=== PATIENT | female | born 1995 | race African-American/Black ===

== ENCOUNTER 2024-07-22 10:01 | Emergency (ER) | payer SELFPAY ==
[2024-07-22 10:06] VITALS: BP 145/102; PULSE 88; RESP 17; TEMP 36.6; O2SAT 98
--- NOTE | 2024-07-22 10:32 | ED_ITS ---
HPI - General Adult General Chief complaint: Unspecified Stated complaint: withdrawal from sertraline, wants serum hcg Time Seen by Provider: 07/22/24 10:26 Source: patient Mode of arrival: ambulatory Limitations: no limitations History of Present Illness HPI narrative: 28 YEARS OLD FEMALE DROVE HERSELF TO THE EMERGENCY ROOM COMPLAINING OF POSSIBLE SERTRALINE WITHDRAWAL EFFECT INCLUDING DIZZINESS, LIGHTHEADEDNESS, ANXIETY IN THE LAST FEW DAYS. PATIENT USED TO BE ON SERTRALINE FOR 4 YEARS, PATIENT WAS ADVISED BY HIS PSYCHIATRIST TO TAPER THE DOSE OF SERTRALINE IN THE LAST FEW WEEKS, LAST SERTRALINE INTAKE WAS HALF A TABLET 1 WEEK AGO. PATIENT UNABLE TO HAVE ANOTHER APPOINTMENT WITH HER PSYCHIATRIST. LAST MENSTRUAL PERIOD MAY 2024, PATIENT IS TELLING ME THAT SHE TESTED POSITIVE FOR AT HOME AND STARTED HER MENSTRUAL CYCLE YESTERDAY. SHE DENIES ANY FEVER OR CHILLS Related Data Allergies Allergy/AdvReac Type Severity Reaction Status Date / Time hydromorphone Allergy hives Verified 07/22/24 10:03 Review of Systems 2 Review of Systems: All systems reviewed & are unremarkable except as noted in HPI and below Exam 2 Narrative: GENERAL APPEARANCE: WELL-DEVELOPED, WELL-NOURISHED SKIN: NORMAL COLOR HEAD: NORMOCEPHALIC, NONTRAUMATIC EYES: CLEAR CONJUNCTIVA ENT: OROPHARYNX NORMAL, EARS NORMAL, NOSE NORMAL NECK: SUPPLE, NONTENDER CHEST AND RESPIRATORY: AIRWAY PATENT, NO RESPIRATORY DISTRESS, NO ACCESSORY MUSCLE USE HEART: REGULAR RATE/RHYTHM ABDOMEN: SOFT, NONTENDER, NO ORGANOMEGALY, QUIET BOWEL SOUNDS VASCULAR: NORMAL PERIPHERAL PULSES, NORMAL CAPILLARY REFILL. MUSCULOSKELETAL: NORMAL RANGE OF MOTION, NONTENDER BACK NEUROLOGIC: ALERT AND ORIENTED ?3, PROFESSOR OF HISTORICAL THEOLOGY IS NORMAL TESTED, NO GROSS MOTOR DEFICIT Course Vital Signs Vital signs: Vital Signs Temperature 36.6 C 07/22/24 10:06 Pulse Rate 88 07/22/24 10:06 Respiratory Rate 17 07/22/24 10:06 Blood Pressure 145/102 H 07/22/24 10:06 Pulse Oximetry 98 07/22/24 10:06 Oxygen Delivery Room Air 07/22/24 10:06 Temperature 36.6 C 07/22/24 10:06 Pulse Rate 88 07/22/24 10:06 Respiratory Rate 17 07/22/24 10:06 Blood Pressure 145/102 H 07/22/24 10:06 Pulse Oximetry 98 07/22/24 10:06 Oxygen Delivery Room Air 07/22/24 10:06 Medical Decision Making MDM Narrative Medical decision making narrative: PATIENT CAME WITH POSSIBLE SERTRALINE WITHDRAWAL SIDE EFFECTS POSSIBLE VITAL SIGNS ARE STABLE PHYSICAL EXAMINATION IS UNREMARKABLE DIFFERENTIAL DIAGNOSIS SERTRALINE WITHDRAWAL SIDE EFFECTS, ANXIETY LIKE SYMPTOMS, URINARY TRACT INFECTION, RELATED SYMPTOMS BLOOD WORKUP TODAY INCLUDES CBC, CMP, SERUM TEST SHOWED no significant abnormalities URINALYSIS SHOWED evidence of infection Diagnosis urinary tract infection Discharged on Macrobid Discharge Differential Diagnosis Differential Diagnosis: As above Vital Signs Vital Signs: Vital Signs Temperature 36.6 C 07/22/24 10:06 Pulse Rate 88 07/22/24 10:06 Respiratory Rate 17 07/22/24 10:06 Blood Pressure 145/102 H 07/22/24 10:06 Pulse Oximetry 98 07/22/24 10:06 Oxygen Delivery Room Air 07/22/24 10:06 Temperature 36.6 C 07/22/24 10:06 Pulse Rate 88 07/22/24 10:06 Respiratory Rate 17 07/22/24 10:06 Blood Pressure 145/102 H 07/22/24 10:06 Pulse Oximetry 98 07/22/24 10:06 Oxygen Delivery Room Air 07/22/24 10:06 Lab Data 07/22/24 10:58 07/22/24 10:58 Labs: Lab Results 07/22/24 07/22/24 07/22/24 Range/Units 10:25 10:49 10:58 WBC 8.0 (4.5-10.0) K/mm3 RBC 4.52 (4.2-5.4) M/mm3 Hgb 12.0 (12.0-15.0) g/dL Hct 38.3 (37.0-47.0) % MCV 84.7 (80-100) fl MCH 26.5 (26-34) pg MCHC 31.3 L (32-36) g/dl RDW 13.6 (11.5-14.5) % Plt Count 333 (150-375) k/mm3 MPV 9.4 (7.4-10.4) fl Immature Gran % (Auto) 0.4 (0-0.5) % Neut % (Auto) 57.1 (45.5-73.1) % Lymph % (Auto) 30.2 (18.3-44.2) % [place] % (Auto) 7.2 (2.6-8.5) % Eos % (Auto) 4.6 H (0-4.4) % Baso % (Auto) 0.5 (0.2-1.2) % Lymph # (Auto) 2.41 (0.9-3.2) K/mm3 [place] # (Auto) 0.6 (0.1-0.6) K/mm3 Eos # (Auto) 0.4 H (0-0.3) K/mm3 Baso # (Auto) 0.0 (0.0-0.1) K/mm3 Abs Immat Gran (auto) 0.03 (0.00-0.031) K/mm3 Absolute Neuts (auto) 4.6 (1.3-6.7) K/mm3 Absolute Nucleated RBC 0.000 (0.0-0.012) K/mm3 Nucleated RBC % 0.0 (0.0-0.2) % Sodium 138 (137-145) mmol/L Potassium 4.4 (3.4-5.0) mmol/L Chloride 103 (98-107) mmol/L Carbon Dioxide 29 (22-30) mmol/L Anion Gap 6 (4-12) mmol/L BUN 9 (7-17) mg/dL Creatinine 0.85 (0.7-1.0) mg/dL Estim Creat Clear Calc 114 ml/min Estimated GFR > 60 (59 - ) Glucose 96 (65-110) mg/dL Calcium 9.4 (8.4-10.2) mg/dL Total Bilirubin 0.2 (0.2-1.3) mg/dL AST 20 (14-36) U/L ALT 27 (6-35) U/L Alkaline Phosphatase 68 (38-126) U/L Total Protein 8.0 (6.3-8.2) g/dL Albumin 4.2 (3.5-5.1) g/dL Beta HCG, Quant 3.60 mIU/ML Urine Color Red H (Yellow) Urine Appearance Turbid H (Clear) Urine pH 7.5 (5.0-9.0) Ur Specific [place] 1.019 (1.001-1.035) Urine Protein 1+ H (Negative) mg/dL Urine Glucose (UA) Negative (Negative) mg/dL Urine Ketones Negative (Negative) mg/dL Ur Blood (Man) 3+ H (Negative) Urine Nitrate Negative (Negative) Urine Bilirubin Negative (Negative) Urine Urobilinogen 0.2 (<2.0) mg/dL Leukocyte Esterase Rfl 2+ H (Negative) HORTENCIA/UL Urine RBC >100 H (0-2) /hpf Urine WBC 10-15 H (0-3) /hpf Ur Squamous Epith Cells Occasional (Few) /hpf Urine Bacteria 2+ H (None) /hpf POC Urine HCG, Qual Negative (Negative) Critical Care Time Critical Care Time Critical Care Time: No Discharge Plan Discharge Clinical Impression: Urinary tract infection Patient Disposition: Home, Self-Care Condition: Stable Instructions: Antibiotic Form, Urinary Tract Infection in Women (DC) Additional Instructions: Return if symptoms are worsening , call your family physician for appointment, take Tylenol as as needed for aches and pain, continue home medications. Patient Language: Uzbek Prescriptions: New nitrofurantoin monohyd/m-cryst [Macrobid] 100 mg capsule 100 mg PO Q12H 5 Days Qty: 10 0RF Rx Instructions: must administer with a meal/food Follow-up/Referrals: Mario Galdamez MD [Physician] - 07/27/24 UNKNOWN,DOCTOR [Primary Care Provider] -
[2024-07-22 10:36] LABS: BEDSIDEPREGUCG Negative (Negative)
[2024-07-22 11:12] LABS: Basophils Percent Auto 0.5 % (0.2-1.2); Eosinophils Absolute Auto 0.4 K/mm3 (0-0.3); Eosinophils Percent Auto 4.6 % (0-4.4); Hematocrit 38.3 % (37.0-47.0); Immature Granulocyte Absolute 0.03 K/mm3 (0.00-0.031); Immature Granulocyte Percent A 0.4 % (0-0.5); Lymphocytes Absolute Auto 2.41 K/mm3 (0.9-3.2); Lymphocytes Percent Auto 30.2 % (18.3-44.2); Mean Corpuscular HGB Conc 31.3 g/dl (32-36); Mean Corpuscular Hemoglobin 26.5 pg (26-34); Mean Corpuscular Volume 84.7 fl (80-100); Mean Platelet Volume 9.4 fl (7.4-10.4); Monocytes Absolute Auto 0.6 K/mm3 (0.1-0.6); Monocytes Percent Auto 7.2 % (2.6-8.5); Neutrophils Absolute Auto 4.6 K/mm3 (1.3-6.7); Neutrophils Percent Auto 57.1 % (45.5-73.1); Platelet Count Result 333 k/mm3 (150-375); Red Blood Count 4.52 M/mm3 (4.2-5.4); Red Cell Distribution Width 13.6 % (11.5-14.5)
[2024-07-22 11:13] LABS: Add Urine Microscopic? YES; Appearance Urine Turbid (Clear); Bilirubin Urine Negative (Negative); Blood Urine 3+ (Negative); Glucose Urine UA Negative (Negative); Ketones Urine Negative (Negative); Leukocyte Esterase Ur 2+ LEU/UL (Negative); Nitrate Urine Negative (Negative); Protein Urine 1+ mg/dL (Negative); Specific Grav Ur 1.019 (1.001-1.035); Urobilinogen Urine 0.2 mg/dL (<2.0); pH Urine 7.5 (5.0-9.0)
[2024-07-22 11:18] LABS: Color Urine Red (Yellow)
[2024-07-22 11:24] LABS: Alanine Aminotransferase 27 U/L (6-35); Albumin Level 4.2 g/dL (3.5-5.1); Alkaline Phosphatase 68 U/L (38-126); Anion Gap 6 mmol/L (4-12); Aspartate Amino Transferase 20 U/L (14-36); Bilirubin,Total 0.2 mg/dL (0.2-1.3); Blood Urea Nitrogen 9 mg/dL (7-17); Calcium 9.4 mg/dL (8.4-10.2); Carbon Dioxide 29 mmol/L (22-30); Chloride 103 mmol/L (98-107); Estimated CRCL calculation 114 ml/min; Estimated Glomerular Filt Rate > 60; Glucose 96 mg/dL (65-110); Potassium 4.4 mmol/L (3.4-5.0); Sodium 138 mmol/L (137-145)
--- OUTSIDE RECORDS SUMMARY | 2024-07-22 11:33 | XMS_ITS | Clinical Summary ---
Author Organization [facility] Address [address] [place] [id number] Care Team Providers Care Rug Touch Up Painter Name Role Phone Wily Cedeno MD Primary Care Provider [phone] Allergies Active Allergy Reactions Criticality Noted Date Comments Hydromorphone Itching Low 06/17/2017 Medications vit D3-vit B-impfvjsyk-oel s [id number] bymg-ncl-xg-mg tablet Take by mouth Active albuterol HFA (PROVENTIL HFA,VENTOLIN HFA,PROAIR HFA) 90 mcg/actuation inhaler Inhale 2 puffs every 4 (four) hours as needed for wheezing 1 Inhaler 06/04/2019 Active ibuprofen (ADVIL,MOTRIN) 800 mg tablet Take 1 tablet by mouth every 6 (six) hours as needed 05/26/2019 Active acyclovir (ZOVIRAX) 400 mg tablet Take 1 tablet (400 mg total) by mouth 3 (three) times a day 15 tablet 10/29/2019 Active cyclobenzaprine (FLEXERIL) 10 mg tablet Take 1 tablet (10 mg total) by mouth 3 (three) times a day as needed for muscle spasms 12 tablet 08/07/2020 Active Active Problems Problem Noted Date Diagnosed Date Genital herpes 10/08/2019 Depression 10/08/2019 Tarsal tunnel syndrome of left side 10/13/2017 Pain in both feet 10/13/2017 Atrial fibrillation 08/19/2015 Asthma Overview (08/18/2019): Details lacking Resolved Problems Problem Noted Date Diagnosed Date Resolved Date Acute vaginitis 09/23/2017 10/08/2019 Acute cervicitis 09/23/2017 10/08/2019 URI, acute 09/23/2017 08/18/2019 Overview (08/18/2019): Details lacking. Febrile illness, acute 09/23/201708/17 Overview (08/18/2019): Details lacking. Cholecystitis 12/07/2011 10/08/2019 Overview (08/18/2019): Overview: H/o chronic epigastric abdominal pain, recently increasing in frequency over the past year. Positive sonographic Han's sign at OSH. She remains afebrile, though has elevated AST, ALT, GGT. Ultrasound at OSH indicated cholelithiasis with probable choledocholithiasis and mild ectasia of common bile duct. Concern for acute cholecystitis with leukocytosis and left shift. Clinically improving (however receiving opiate pain control), while labs continue to trend down, less discomfort on exam this am. - continue to appreciate surgery consult - continue NPO status with OHVF - continue IV antibiotics- Unasyn (ampicillin-sulbactam) for 1g Q6 hours - day 2 - Vital signs Q4 hours - Strict intake and output Acute pancreatitis 12/07/2011 0 Overview (08/18/2019): Overview: Maria L had epigastric abdominal pain radiating to the back one day prior to admission, with emesis and poor PO intake. On admission, noted dehydration with epigastric pain on exam. No guarding or rebound tenderness. Amylase and lipase elevated at OSH, to 2350 and 4376, trended down to 1068 and 1137 on admission. GGT elevated at 298. US completed at OSH, indicated cholelithiasis + dilated common bile duct with mild ectasia of common bile duct. In consideration of Maria L's US findings + elevated transaminases on admission, her clinical picture correlated with gallstone pancreatitis, s/p likely passing of a gallstone. Less likely an isolated episode of acute cholecystitis per imaging, with down trending WBCs, L shift, and LFTs. She continues to clinically improve, liver enzymes, amylase, lipase continue to trend down, responded well to antibiotics and bowel rest + supportive care, no BMs at this time. Pain continues to be well managed, no morphine needed within the last 24hrs. - pending scheduled lap fermín + cholangiogram today, 12/09 - continue to trend repeat amylase, lipase, CMP qAM - pain control: IV morphine 4mg q4 PRN, d/c'ed Dilaudid 1mg q4 prn - continue bowel rest + mIVF while NPO - continue Colace for constipation 2/2 opioids - continue Nexium IV - consider nutrition consult s/p surgery Immunizations Immunization Administration Dates Next Due DTaP 01/22/2002, 9,06/08/1997,04/20,02/18/1997 HPV, Quadrivalent 12/25/2010,08/28/2009,11/29/19 07 Hep A, Ped Unspecified 11/28/2006 Hep A, Pediatric 08/28/2009 Hep B, Adolescent or Pediatric 10/10/1997,1996,1996 HiB 05/19/1998, 8,04/20/1997,02/18 IPV 01/22/2002, 9,04/20/1997,02/18 Influenza, Quadrivalent, Spl it, Preservative Free, Intramuscular 10/08/2023 MMR 01/22/2002,05/19/1998 Meningococcal Conjugate (Menveo) 01/05/2014 Meningococcal MCV4, Unspecified 08/28/2009 OPV 05/19/1998,04/20/1997,02/18/1997 Tdap 10/08/2023,11/28/2006 Varicella 11/28/2006,12/08/1997 Surgical History Surgery Date Site/Laterality Comments LAPAROSCOPIC CHOLECYSTECTOMY 05/12/2011 - 05/11/2012 Medical History Medical History Date Comments Asthma Details lacking Febrile illness, acute 09/23/2017 Details l acking. URI, acute 09/23/2017 Details lacking. Family History Medical History Relation Name Comments Arrhythmia Father A-fib? Hypertension Father Diabetes Maternal Grandmother Hypertension Maternal Grandmother Breast cancer Maternal Great-Grandmother Depression Mother Hypertension Mother Hypertension Paternal Grandmother Relation Name Status Comments Father Maternal Grandmother Maternal Great-Grandmother Mother Paternal Grandmother Social History Tobacco Use Types Packs/Day Years Used Date Smoking Tobacco: Never Smokeless Tobacco: Never Alcohol Use Standard Drinks/Week Comments Yes 1 (1 standard drink = 0.6 oz pur e alcohol) occasionally Personal Safety Answer Date Recorded Getting School Help Needed Not on file 07/06 Comments No Sex and Gender Information Value Date Recorded Sex Assigned at Not on file Legal Sex Female 3:12 PM [employer]UM REGIST[employer] Gender Identity Not on file Sexual Orientation Not on file Occupation Industry Job Start Date Job End Date N/A Not on file Not on file Not on file Obstetrics History Para Term AB IAB SAB Ectopic Multiple Livin g Live Births 0 0 0 0 0 0 0 0 0 0 0 Last Filed Vital Signs Vital Sign Reading Time Taken Comments Blood Pressure 130/91 04/21/2021 10:44 PM [employer]USEUM REGISTRAR Pulse 100 04/21/2021 10:43 PM [employer]USEUM REGISTRAR Temperature 36.7 C (98.1 F) 04/21/2021 10:43 PM MUSEUM REGISTRAR Respiratory Rate 18 04/21/2021 10:43 PM MUSEUM REGISTRAR Oxygen Saturation 100% 04/21/2021 10:43 PM MUSEUM REGISTRAR Inhaled Oxygen Concentration - - Weight 87.5 kg (193 lb) 08/07/2020 9:08 AM CDT Height 172.7 cm (5' 8 ) 08/07/2020 9:08 AM CDT Body Mass Index 29.35 08/07/2020 9:08 AM CDT Plan of Treatment Health Maintenance Due Date Last Done Comments Cervical Cancer Screening 1996 Depression Screening 1996 Hepatitis C Screening 1996 Regular Well Visit/Exam 18-64 2014 Pneumococcal vaccine <65 (1 of 2 - PCV) 11/28/2015 Influenza Vaccine (#1) 2024 10/08/2023 DTaP/Tdap/Td Vaccine (8 - Td or Tdap) 10/07/2033 10/08/2023, 11/28/2006, 01/22/2002, Additional history exists Hepatitis B Screening Completed 10/10/1997 , 1996, 1996 Varicella Vaccines Completed 11/28/2006, 12/08/1997 HPV Vaccines Completed 12/25/2010, 08/10, 11/28/2006 Insurance [facility] OPEN ACCESS Care Teams Rug Touch Up Painter Relationship Specialty Start Date End Date Wily Cedeno MD [address] [place] [address] DR BURLESON B [address] [address] PCP - General Family Medicine 06/18/22
--- OUTSIDE RECORDS SUMMARY | 2024-07-22 11:33 | XMS_ITS | Referral Summary ---
Author Organization [facility] Address [address] [place] [id number] Care Team Providers Care Cocktail Server Name Role Phone Wily Cedeno MD Primary Care Provider [phone] Allergies Active Allergy Reactions Criticality Noted Date Comments Hydromorphone Itching Low 06/17/2017 Medications vit D3-vit E-cnvdpzizx-upl s [id number] yfpb-aly-pq-mg tablet Take by mouth Active albuterol HFA [...] surgery consult - continue NPO status with OKVF - continue IV antibiotics- Unasyn (ampicillin-sulbactam) for [...] 08/28/2009 OPV 05/19/1998,04/20/1997,02/18/1997 Tdap 10/08/2023,11/28/2006 Varicella 11/28/2006,12/08/1997 Social History Tobacco Use Types Packs/Day Years [...] on file Legal Sex Female 3:12 PM [employer] Gender Identity Not on file Sexual Orientation Not on file Occupation Industry Job Start Date Job End Date N/A Not on file Not on file Not on file Last Filed Vital Signs Vital Sign Reading Time Taken Comments Blood Pressure 130/91 04/21/2021 10:44 PM [employer] Pulse 100 04/21/2021 10:43 PM [employer] Temperature 36.7 C (98.1 F) 04/21/2021 10:43 PM [employer] Respiratory Rate 18 04/21/2021 10:43 PM [employer] Oxygen Saturation 100% 04/21/2021 10:43 PM [employer] Inhaled Oxygen Concentration - - Weight 87.5 kg (193 lb) 08/07/2020 9:08 AM CDT Height 172.7 cm (5' 8 ) 08/07/2020 9:08 AM CDT Body Mass Index 29.35 08/07/2020 9:08 AM CDT Plan of Treatment Not on file Insurance [facility] [employer] OPEN ACCESS Care Teams Cocktail Server Relationship Specialty Start Date End Date Wily Cedeno MD [address] [place] [address] DR BURLESON B [facility] [address] [place] [address] PCP - General Family Medicine 06/18/22
--- OUTSIDE RECORDS SUMMARY | 2024-07-22 11:33 | XMS_ITS | Patient Health Summary ---
Author Organization [facility] Address [address] [place] [address] Care Team Providers Care Pediatric Allergist Name Role Phone Wily Cedeno MD Primary Care Provider [phone] Note from [facility],non-owned Affiliates and Associated Physician Practices is amultiple site organization consisting of ambulatory clinics and hospital sitesin [place], [place], [place] and [place]. This disclosure is being madepursuant to the Care Everywhere program and may not contain all information available regarding this patient. Last updated 18.[facility] Allergies * Hydromorphone(Itching) Medications * Be aware that medications may not be up to date on this document. Alwaysverify current medications with the patient. * FIBER PO Take 1 Tab by mouth 3 times daily. * lansoprazole (PREVACID) 30 MG capsule(Started 03/03/2014) Take 1 Cap by mouth 2 times daily,before breakfast and supper. 5 refills left * polyethylene glycol 3350 (MIRALAX) powder(Started 03/03/2014) Take 8.5 g by mouth once daily. 5 refills left Active Problems Problem Noted Date Diagnosed Date Obese 12/09/2011 Cholecystitis 12/07/2011 Gallstone Pancreatitis 12/07/2011 Social History Tobacco Use Types Packs/Day Years Used Date Smoking Tobacco: Never Assessed Smokeless Tobacco: Never Alcohol Use Standard Drinks/Week Comments No 0 (1 standard drink = 0.6 oz pur e alcohol) Sex and Gender Information Value Date Recorded Sex Assigned at Not on file Gender Identity Not on file Sexual Orientation Not on file Last Filed Vital Signs Vital Sign Reading Time Taken Comments Blood Pressure 108/62 03/03/2014 4:11 PM CDT Pulse 55 12/11/2011 12:10 PM CDT Temperature 36.6 C (97.8 F) 12/11/2011 12:10 PM CDT Respiratory Rate 14 12/11/2011 12:1 0 PM CDT Oxygen Saturation 98% 12/11/2011 12: 10 PM CDT Inhaled Oxygen Concentration - - Weight 74.3 kg (163 lb 12.8 oz) 03/03/2014 4:11 PM CDT Height 166.5 cm (5' 5.55 ) 03/03/2014 4:11 PM CD T Body Mass Index 26.8 03/03/2014 4:11 PM CDT Procedures * LAB RESULTS ORDER(Performed 03/24/2014) * PATHOLOGY/CYTOLOGY REPORT ORDER(Performed 12/13/2011) * LAB RESULTS ORDER(Performed 12/13/2011) * IMAGING/RADIOLOGY/XRAY RESULTS ORDER(Performed 12/13/2011) * LIPASE BLOOD(Performed 12/11/2011) * AMYLASE BLOOD(Performed 12/11/2011) * LAPAROSCOPIC CHOLECYSTECTOMY WITH CHOLANGIOGRAM (IOC)(Performed 12/11/2011) Performed for Cholecystitis, unspecified * FL OR CHOLANGIOGRAM(Performed 12/10/2011) Performed for Cholecystitis * GROSS EXAM PATHOLOGY (STL)(Performed 12/10/2011) Performed for Cholecystitis * DIFFERENTIAL MANUAL(Performed 12/10/2011) * CBC W AUTO DIFFERENTIAL(Performed 12/10/2011) * LIPASE BLOOD(Performed 12/10/2011) * AMYLASE BLOOD(Performed 12/10/2011) * COMPREHENSIVE METABOLIC PANEL(Performed 12/10/2011) * HCG URINE QUALITATIVE(Performed 12/09/2011) * CBC W AUTO DIFFERENTIAL(Performed 12/09/2011) * LIPASE BLOOD(Performed 12/09/2011) * AMYLASE BLOOD(Performed 12/09/2011) * COMPREHENSIVE METABOLIC PANEL(Performed 12/09/2011) * DIFFERENTIAL MANUAL(Performed 12/08/2011) * CBC W AUTO DIFFERENTIAL(Performed 12/08/2011) * LIPASE BLOOD(Performed 12/08/2011) * AMYLASE BLOOD(Performed 12/08/2011) * COMPREHENSIVE METABOLIC PANEL(Performed 12/08/2011) * IP CONSULT TO PEDIATRIC SURGERY(Performed 12/07/2011) * LIPASE BLOOD(Performed 12/07/2011) * COMPREHENSIVE METABOLIC PANEL(Performed 12/07/2011) * AMYLASE BLOOD(Performed 12/07/2011) * DIFFERENTIAL MANUAL(Performed 12/06/2011) * LIPASE BLOOD(Performed 12/06/2011) * AMYLASE BLOOD(Performed 12/06/2011) * LIPID PROFILE(Performed 12/06/2011) * GGT(Performed 12/06/2011) * COMPREHENSIVE METABOLIC PANEL(Performed 12/06/2011) * CBC W AUTO DIFFERENTIAL(Performed 12/06/2011) * LUPUS ANTICOAGULANT PANEL W RFLX(Performed 04/09/2010) Performed for Raynaud's phenomenon * VITAMIN D 25-HYDROXY(Performed 04/09/2010) Performed for Raynaud's phenomenon * RHEUMATOID FACTOR BLOOD SCREEN(Performed 04/09/2010) Performed for Raynaud's phenomenon * TSH(Performed 04/09/2010) Performed for Raynaud's phenomenon * ERYTHROCYTE SEDIMENTATION RATE(Performed 04/09/2010) Performed for Raynaud's phenomenon * CK BLOOD(Performed 04/09/2010) Performed for Raynaud's phenomenon * C-REACTIVE PROTEIN(Performed 04/09/2010) Performed for Raynaud's phenomenon * COMPLEMENT C4(Performed 04/09/2010) Performed for Raynaud's phenomenon * COMPLEMENT C3(Performed 04/09/2010) Performed for Raynaud's phenomenon * COMPLEMENT TOTAL(Performed 04/09/2010) Performed for Raynaud's phenomenon * CBC W AUTO DIFFERENTIAL(Performed 04/09/2010) Performed for Raynaud's phenomenon * COMPREHENSIVE METABOLIC PANEL(Performed 04/09/2010) Performed for Raynaud's phenomenon * CARDIOLIPIN ANTIBODY IGG/IGM PANEL(Performed 04/09/2010) Performed for Raynaud's phenomenon * BETA-2 GLYCOPROTEIN 1 ANTIBODY IGG/IGM PANEL(Performed 04/09/2010) Performed for Raynaud's phenomenon * THYROID AB PANEL (TPO AB+THYROGLOB AB)(Performed 04/09/2010) Performed for Raynaud's phenomenon * MPO/GA 3 AUTOANTIBODIES PANEL(Performed 04/09/2010) Performed for Raynaud's phenomenon * ABILIO BLOOD SCREEN W/REFLEX TITER(Performed 04/09/2010) Performed for Raynaud's phenomenon * SS-B (SJOGREN'S) ANTIBODY(Performed 04/09/2010) Performed for Raynaud's phenomenon * SS-A (SJOGREN'S) ANTIBODY(Performed 04/09/2010) Performed for Raynaud's phenomenon * RON (SM) ANTIBODY TY(Performed 04/09/2010) Performed for Raynaud's phenomenon * SCLERODERMA 70 (SCL) ANTIBODY(Performed 04/09/2010) Performed for Raynaud's phenomenon * ACTIVATED SLUDGE OPERATOR ANTIBODY(Performed 04/09/2010) Performed for Raynaud's phenomenon * DNA ANTIBODY DOUBLE STRANDED(Performed 04/09/2010) Performed for Raynaud's phenomenon Results * LAB RESULTS ORDER (03/24/2014 2:23 PM OBSTETRICS TEACHER) Only the most recent of2 resultswithin the time period is included. Narrative 03/24/2014 2:23 PM OBSTETRICS TEACHER Ordered by an unspecified provider. Scanned Document LAB - THERAPEUTIC DR UG MONITORING ORDERABLES * PATHOLOGY/CYTOLOGY REPORT ORDER (12/13/2011 5:36 PM CDT) Narrative Transcriptions Document, Scanned - 12/13/2011 5:36 PM CDT Scanned Document LAB - PATHOLOGY/CYTO LOGY ORDERABLES * IMAGING/RADIOLOGY/XRAY RESULTS ORDER (12/13/2011 5:36 PM CDT) Anatomical Region Laterality Modality Other Narrative Transcriptions Document, Scanned - 12/13/2011 5:36 PM CDT Scanned Document IMAGING * LIPASE BLOOD (12/11/2011 11:35 AM CDT) Only the most recent of6 resultswithin the time period is included. Lipase 80 10 - 220 U/L 12/11/2011 12:31 PM CDT [facility] Blood specimen (specimen) BLOOD SPECIMEN / Unknown 12/11/2011 11:35 AM CDT 12/11/2011 11:54 AM CDT Niharika Francois MD LAB - CHEMISTRY OR DERABLES Performing Organization Address [facility]/ZIP Co de Phone Number [facility] [address] [place] [address] * (ABNORMAL) AMYLASE BLOOD (12/11/2011 11:35 AM CDT) Only the most recent of6 resultswithin the time period is included. Amylase 96(H) 5 - 65 U/L 12/11/2011 12:31 PM CDT [facility] Blood specimen (specimen) BLOOD SPECIMEN / Unknown 12/11/2011 11:35 AM CDT 12/11/2011 11:54 AM CDT Niharika Francois MD LAB - CHEMISTRY OR DERABLES Performing Organization Address [facility] Co de Phone Number [facility] [address] [place] [address] * FL OR CHOLANGIOGRAM (12/10/2011 6:28 PM CDT) Anatomical Region Laterality Modality Radio Fluoroscop y 12/11/2011 1:18 PM CDT Impressions 12/11/2011 2:50 PM CDT No filling defect is identified. D: Prashanth Chopra D.O. Narrative 12/11/2011 2:50 PM CDT Exam: Intraoperative cholangiogram. Date: 12/10/2011 at 5:57 p.m. History: Cholecystitis. Findings: No prior study is available for comparison. Five intraoperative images were obtained with limited ayjot-fj-zdfg. Two trocars are seen within the [id number]. Contrast is seen outlining the cystic duct, common bile duct, common hepatic duct, right and left hepatic ducts. No extravasation of the contrast is identified. Contrast is seen sequentially filling the duodenum. Procedure Note Reny Hoffman MD - 12/11/2011 Exam: Intraoperative cholangiogram. Date: 12/10/2011 at 5:57 p.m. History: Cholecystitis. Findings: No prior study is available for comparison. Five intraoperative images were obtained with limited pnlxr-xr-qoyd. Two trocars are seen within the [id number]-[id number]. Contrast is seen outlining the cystic duct, common bile duct, common hepatic duct, right and left hepatic ducts. No extravasation of the contrast is identified. Contrast is seen sequentially filling the duodenum. IMPRESSION No filling defect is identified. D: Prashanth Chopra D.O. Irving Banegas MD FLUOROSCOPY ORDERABL ES * GROSS EXAM PATHOLOGY (STL) (12/10/2011 6:15 PM CDT) Case Report Surgical Pathology Report Case: [id number] Authorizing Provider: Irving Banegas MD Ordering Provider: Irving Banegas MD Ordering Location: [facility] Collected: 12/10/2011 6:15 PM Pathologist: Leora Brown Received: 12/11/2011 6:50 AM Signed Out: 12/12/2011 1:16 PM (Final) Specimen: Gallbladder 12/12/2011 1:16 PM T [facility] Final Diagnosis GALLBLADDER: - CHRONIC CHOLECYSTITIS AND CHOLELITHIASIS. 12/12/2011 1:16 PM T [facility] Clinical History The patient is a 16-year-old girl with cholecystitis who underwent laparoscopic cholecystectomy. 12/12/2011 1:16 PM T [facility] Gross Description Submitted fixed in formalin in one container for gross and microscopic examination labeled with the patient's name, Maria L Damico, and gallbladder, is a gallbladder submitted in five fragments. The specimen has an aggregate measurement of 10 x 2 x 1.2 cm. The cystic duct is identified and is stapled. The serosal surface is yellow-sweeney and smooth. The gallbladder contains numerous yellow choleliths ranging in size from 0.1 cm up to 1 cm in greatest dimension. The mucosal surface has a green-brown mossy appearance. The gallbladder wall thickness is 0.3 cm. Numerous yellow choleliths are submitted outside the gallbladder within the specimen container. Dairy Cattle Farm Manager sections from the gallbladder and cystic duct are submitted in cassette A1. (CT/mal) 12/12/2011 1:16 PM T [facility] Microscopic Description 1 H&E. The gallbladder histologically shows chronic inflammation of the mucosa with occasional Rokitansky-Aschof f sinuses. (CV/mal) 12/12/2011 1:16 PM T [facility] Synoptic Report 12/12/2011 1:16 PM T [facility] Disclaimer This case has been personally reviewed and interpreted by the attending (teaching) pathologist. 12/12/2011 1:16 PM T [facility] Miscellaneous samples (specimen) ENTIRE GALLBLADDER / Unknown 12/10/2011 6:15 PM CDT 12/11/2011 6:50 AM CDT Irving Banegas MD LAB - PATHOLOGY/CYTO LOGY ORDERABLES Performing Organization Address City/State/[facility] Co de Phone Number [facility] [place] [address] * DIFFERENTIAL MANUAL (12/10/2011 6:19 AM CDT) Only the most recent of3 resultswithin the time period is included. WBC Auto 7.6 X(10)9/L 12/10/2011 8:43 AM T [facility] Neutrophil % Manual 55 24 - 66 % 12/10/2011 8:43 AM T [facility] Lymphocytes % Manual 29 22 - 61 % 12/10/2011 8:43 AM T [facility] Monocytes % Manual 9 3 - 15 % 12/10/2011 8:43 AM T [facility] Eosinophils % Manual 5 0 - 10 % 12/10/2011 8:43 AM [facility] Atypical Lymphocyte % Manual 2 % 12/10/2011 8:43 AM T [facility] Cells Counted 100 # cells 12/10/2011 8:43 AM [facility] Platelet Estimation Normal 12/10/2011 8:43 AM [facility] WBC Morph Normal 12/10/2011 8:43 AM [facility] Anisocytosis Slight 12/10/2011 8:43 AM T [facility] Blood specimen (specimen) BLOOD SPECIMEN / Unknown 12/10/2011 6:19 AM CDT 12/10/2011 6:33 AM CDT Shila Zafar MD LAB - HEMATOLOGY ORDERABLES [facility] [address] [place] [place] [address] * (ABNORMAL) CBC W AUTO DIFFERENTIAL (12/10/2011 6:19 AM CDT) Only the most recent of5 resultswithin the time period is included. WBC 7.6 4.5 - 14.5 x10^9/L 12/10/2011 8:43 AM T [facility] RBC 4.13 4.10 - 5.10 x10^12/L 12/10/2011 8:43 AM [facility] Hemoglobin 11.6(L) 12.0 - 16.0 g/dL 12/10/2011 8:43 AM [facility] Hematocrit 33.7(L) 36.0 - 47.0 % 12/10/2011 8:43 AM [facility] MCV 81.6 78.0 - 102.0 fl 12/10/2011 8:43 AM T [facility] MCH 28.1 25.0 - 35.0 pg 12/10/2011 8:43 AM [facility] MCHC 34.4 31.0 - 37.0 gm/dL 12/10/2011 8:43 AM [facility] RDW-CV 12.4 11.5 - 14.0 % 12/10/2011 8:43 AM [facility] MPV 11.2(H) 6.0 - 9.5 fl 12/10/2011 8:43 AM [facility] nRBC Auto 0 12/10/2011 8:43 AM [facility] Hematology Reflex Status Manual Diff to follow 12/10/2011 8:43 AM [facility] Platelet Count 250 100 - 400 x10^9/L 12/10/2011 8:43 AM [facility] Blood specimen (specimen) BLOOD SPECIMEN / Unknown 12/10/2011 6:19 AM CDT 12/10/2011 6:33 AM CDT Shila Zafar MD LAB - HEMATOLOGY ORDERABLES [facility] [address] [place] [address] * (ABNORMAL) COMPREHENSIVE METABOLIC PANEL (12/10/2011 6:19 AM CDT) Only the most recent of6 resultswithin the time period is included. Glucose 113(H) 70 - 105 mg/dL 12/10/2011 7:14 AM [facility] Sodium 140 136 - 145 mmol/L 12/10/2011 7:14 AM [facility] Potassium 5.1 3.5 - 5.1 mmol/L 12/10/2011 7:14 AM [facility] Chloride 107 98 - 107 mmol/L 12/10/2011 7:14 AM [facility] CO2 21 20 - 28 mmol/L 12/10/2011 7:14 AM [facility] Calcium 9.44 9.08 - 10.48 mg/dL 12/10/2011 7:14 AM [facility] Anion Gap 12 5 - 20 mmol/L 12/10/2011 7:14 AM [facility] BUN 5.4 5.3 - 18.7 mg/dL 12/10/2011 7:14 AM [facility] Creatinine 0.55(L) 0.61 - 1.07 mg/dL 12/10/2011 7:14 AM [facility] eGFR by MDRD ml/min/1. 73m2 12/10/2011 7:14 AM [facility] Comment:eGFR calculations ar e not performed for children under 18 years old. eGFR by MDRD ml/min/1. 73m2 12/10/2011 7:14 AM [facility] Comment:eGFR calculations ar e not performed for children under 18 years old. Alkaline Phosphatase 93(L) 100 - 390 U/L 12/10/2011 7:14 AM [facility] ALT 90(H) 8 - 65 U/L 12/10/2011 7:14 AM [facility] AST 21 3 - 35 U/L 12/10/2011 7:14 AM [facility] Protein Total 6.7 6.3 - 8.2 gm/dL 12/10/2011 7:14 AM CDT [facility] Albumin 3.5 3.3 - 4.9 gm/dL 12/10/2011 7:14 AM CDT [facility] Bilirubin Total 0.5 0.3 - 1.2 mg/dL 12/10/2011 7:14 AM CDT [facility] Blood specimen (specimen) BLOOD SPECIMEN / Unknown 12/10/2011 6:19 AM CDT 12/10/2011 6:33 AM CDT Shila Zafar MD LAB - CHEMISTRY O RDERABLES Performing Organization Address [facility] Co de Phone Number [facility] [address] [place] [phone] * HCG URINE QUALITATIVE (12/09/2011 2:30 PM CDT) hCG Qualitative Urine Negative Negative 12/09/2011 9:53 PM CDT [facility] Urine specimen (specimen) URINE / Unknown 12/09/2011 2:30 PM CDT 12/09/2011 8:34 PM CDT Radha Berman MICROSTRATEGY ARCHITECT-SOILS ANALYST LAB - URINAL YSIS ORDERABLES Performing Organization Address [facility] Co de Phone Number [facility] [address] [place] [address] * IP CONSULT TO PEDIATRIC SURGERY (12/07/2011 3:11 PM CDT) Narrative Irving Banegas MD - 12/07/2011 3:11 PM CDT Irving Banegas MD 12/07/2011 3:11 PM Pediatric General Surgery History and Physical Patient's Primary Care Physician: Julius Euceda Name: Maria L Damico Age: 16 y.o. Race: black Sex: female Admit Date: 12/06/2011 3:05 PM Chief Complaint/History of Present Illness Abdominal Pain. Maria L Damico is a 16 y.o. female with chronic abdominal pain presenting with two days of epigastric pain and emesis. Pain began after large meal and was diffuse and epigastric prior to spreading to her back and flanks bilaterally. As pain increased, it triggered several bouts of emesis. Pt presented to OSH were initial workup significant for markedly elevated amylase and lipase concerning for pancreatitis. Abd US at the time showed signs of cholecystitis. Pt was transferred to [facility] for further management. No past medical history on file. No past surgical history on file. No family history on file. Social History Occupational History Not on file. Social History Main Topics Smoking status: Not on file Smokeless tobacco: Never Used Alcohol Use: No Drug Use: No Sexually Active: Not on file Prescriptions prior to admission Medication Sig Dispense Refill vitamin D, ergocalciferol, (DRISDOL) 67598 UNIT capsule Take 1 Cap by mouth every 7 days. 4 Cap 2 No Known Allergies Review of Systems Constitutional: No unexplained fever, sweats. Ears, nose, mouth, and throat: No mouth dryness, sores, hearing stable , no nasal discharge. Respiratory: No cough, dyspnea, wheezing, pleuritic pain. Cardiovascular: No exertional chest pain, palpitations, edema, claudication. Gastrointestinal: Poor appetite, nausea, vomiting, abdominal pain, epigastric pain, change in bowel habits, diarrhea Genitourinary: No nocturia, dysuria, frequency, bleeding. Skin: Abdominal rash, h/o Raynaud's disease Exam Vitals: 12/07/11 0730 12/07/11 0740 12/07/11 0750 12/07/11 0805 BP: 117/74 112/75 117/85 131/83 Pulse: 81 81 77 93 Temp: 98.4 F Resp: 12 22 17 12 Weight: SpO2: 94% 93% 94% 98% General appearance: alert, cooperative, no distress Heart: regular rhythm, normal S1 and S2, without murmurs, rubs or gallops Lungs: breath sounds normal and symmetric; no rales or wheezes Abdomen: soft without mass, epigastric tenderness with RUQ tenderness, with normal bowel sounds Extremities: no clubbing, cyanosis or edema Data CBC w/o Manual Diff: Component Name 12/06/11224704/09/10 1740 WBC 18.2* 7.84 HGB 13.6 13.4 HCT 40.2 39.6 PLTCOUNT 260 331 BMP: Component Name 12/06/11224704/09/10 1740 SODIUM 144 140 POTASSIUM 4.8 4.1 CHLORIDE 108* 102 CO2 21 27.2* BUN 9.1 13.1 CREATININE 0.71 0.68 GLUCOSE -- 68* CALCIUM 9.96 9.7 Hepatic Function : Component Name 12/06/11 2248 04/09/10 1740 ALBUMIN 4.0 4.8 ALKPHOS 169 172 ALT 414* 10 AST 290* 25 TBIL 1.1 0.3* DBIL -- -- TPROT 7.6 8.4 Amylase: Component Name 12/06/11 2248 AMYLASE 1068* Lipase: Component Name 12/06/11 2248 LIPASE 1137* Preliminary read with Dr. Collado from Radiology and Dr. Banegas of surgery. RUQ/Gallbladder US 12/06/11: - dilated common bile duct - stone not visualized - no concern for intrahepatic dilatation - multiple stones present in gallbladder - minimal concern for cholecystitis - head of pancreas normal, no tumor noted, non-echogenic Assessment and Plan Maria L Damico is a 16 y.o. female with cholelithiasis and gallstone pancreatitis, resolving. -NPO, IVF, Pain control -daily CMP, CBC, amylase, lipase to trend inflammation and liver/pancreatic inflammation -no further imaging at this time -iv zosyn -unless another acute episode occurs, we prefer to allow Maria L's inflammation to resolve prior to operative intervention. -pt seen and discussed with Dr. Bassam Osborne MD 12/07/2011 2:18 PM Attending Physician Attestation I reviewed the patient's medical record and history. I examined the patient and confirm the findings above. I reviewed the patient's radiology and lab results. I reviewed these results with the resident(s) and formulated a plan. Patient seen on 12/07/2011 10a Brief history: sudden onset RUQ pain, n/v, then found to have gallstones, cbd dilatation. Brief physical exam: abd soft, mild ruq ttp Summary: 16 y.o. female. The patient has the following diagnoses: 1. Cholecystitis 2. Acute pancreatitis Decision making/Plan: Gallstone pancreatitis: may have passed gallstone, causing pancreatitis Enzymes declining, suggesting stone has passed. Pls keep npo till pancreatitis resolved, min abd pain Then will try to perform lap choly with cholangiogram Irving Banegas MD Procedure Note Irving Banegas MD - 12/07/2011 12:58 PM CDT Pediatric General Surgery History and Physical Patient's Primary Care Physician: Julius Euceda Name: Maria L Damico Age: 16 y.o. Race: black Sex: female Admit Date: 12/06/2011 3:05 PM Chief Complaint/History of Present Illness Abdominal Pain. Maria L Damico is a 16 y.o. female with chronicabdominal pain presenting with two days of epigastric pain and emesis.Pain began after large meal and was diffuse and epigastric prior tospreading to her back and flanks bilaterally. As pain increased, ittriggered several bouts of emesis. Pt presented to OSH were initial workupsignificant for markedly elevated amylase and lipase concerning forpancreatitis. Abd US at the time showed signs of cholecystitis. Pt wastransfer[facility] to [facility] for further management. No past medical history on file. No past surgical history on file. No family history on file. Social History Occupational History Not on file. Social History Main Topics Smoking status: Not on file Smokeless tobacco: Never Used Alcohol Use: No Drug Use: No Sexually Active: Not on file Prescriptions prior to admission Medication Sig Dispense Refill vitamin D, ergocalciferol, (DRISDOL) 84798 UNIT capsule Take 1 Cap bymouth every 7 days. 4 Cap 2 No Known Allergies Review of Systems Constitutional: No unexplained fever, sweats. Ears, nose, mouth, and throat: No mouth dryness, sores, hearing stable ,no nasal discharge. Respiratory: No cough, dyspnea, wheezing, pleuritic pain. Cardiovascular: No exertional chest pain, palpitations, edema,claudication. Gastrointestinal: Poor appetite, nausea, vomiting, abdominal pain,epigastric pain, change in bowel habits, diarrhea Genitourinary: No nocturia, dysuria, frequency, bleeding. Skin: Abdominal rash, h/o Raynaud's disease Exam Vitals: 12/07/11 0730 12/07/11 0740 12/07/11 0750 12/07/11 0805 BP: 117/74 112/75 117/85 131/83 Pulse: 81 81 77 93 Temp: 98.4 F Resp: 05 02 17 12 Weight: SpO2: 94% 93% 94% 98% General appearance: alert, cooperative, no distress Heart: regular rhythm, normal S1 and S2, without murmurs, rubs orgallops Lungs: breath sounds normal and symmetric; no rales or wheezes Abdomen: soft without mass, epigastric tenderness with RUQ tenderness,with normal bowel sounds Extremities: no clubbing, cyanosis or edema Data CBC w/o Manual Diff: Component Name 12/06/11224704/09/10 1740 WBC 18.2* 7.84 HGB 13.6 13.4 HCT 40.2 39.6 PLTCOUNT 260 331 BMP: Component Name 12/06/11224704/09/10 1740 SODIUM 144 140 POTASSIUM 4.8 4.1 CHLORIDE 108* 102 CO2 21 27.2* BUN 9.1 13.1 CREATININE 0.71 0.68 GLUCOSE -- 68* CALCIUM 9.96 9.7 Hepatic Function : Component Name 12/06/11224704/09/10 1740 ALBUMIN 4.0 4.8 ALKPHOS 169 172 ALT 414* 10 AST 290* 25 TBIL 1.1 0.3* DBIL -- -- TPROT 7.6 8.4 Amylase: Component Name 12/06/112247 AMYLASE 1068* Lipase: Component Name 12/06/112247 LIPASE 1137* Preliminary read with Dr. Collado from Radiology and Dr. Banegas of surgery. RUQ/Gallbladder US 12/06/11: - dilated common bile duct - stone not visualized - no concern for intrahepatic dilatation - multiple stones present in gallbladder - minimal concern for cholecystitis - head of pancreas normal, no tumor noted, non-echogenic Assessment and Plan Maria L Damico is a 16 y.o. female with cholelithiasis and gallstonepancreatitis, resolving. -NPO, IVF, Pain control -daily CMP, CBC, amylase, lipase to trend inflammation andliver/pancreatic inflammation -no further imaging at this time -iv zosyn -unless another acute episode occurs, we prefer to allow Maria L'sinflammation to resolve prior to operative intervention. -pt seen and discussed with Dr. Bassam Osborne MD 12/07/2011 2:18 PM Attending Physician Attestation I reviewed the patient's medical record and history. I examined thepatient and confirm the findings above. I reviewed the patient'sradiology and lab results. I reviewed these results with the resident(s)and formulated a plan. Patient seen on 12/07/2011 10a Brief history: sudden onset RUQ pain, n/v, then found to have gallstones,cbd dilatation. Brief physical exam: abd soft, mild ruq ttp Summary: 16 y.o. female. The patient has the following diagnoses: 1. Cholecystitis 2. Acute pancreatitis Decision making/Plan: Gallstone pancreatitis: may have passed gallstone, causing pancreatitis Enzymes declining, suggesting stone has passed. Pls keep npo till pancreatitis resolved, min abd pain Then will try to perform lap choly with cholangiogram Irving Banegas MD Anthony Zamora MD INPATIENT CONSUL T ORDERABLES * (ABNORMAL) GGT (12/06/2011 10:48 PM CDT) GGT 298(H) 8 - 69 U/L 12/06/2011 11:30 PM CDT [facility] Blood specimen (specimen) BLOOD SPECIMEN / Unknown 12/06/2011 10:48 PM CDT 12/06/2011 10:56 PM CDT Paresh Granger MD LAB - CHEMISTRY [place]SH [place] Performing Organization Address City/State/[facility] Co de Phone Number [facility] [address] [place] [address] * (ABNORMAL) LIPID PROFILE (12/06/2011 10:48 PM CDT) Cholesterol 145 <170 mg/dL 12/06/2011 11:30 PM CDT [facility] Triglycerides 39(L) 46 - 227 mg/dL 12/06/2011 11:30 PM CDT [facility] HDL Cholesterol 62 >40 mg/dL 2 11:30 PM CDT [facility] LDL Calculated 75 <100 mg/dL 12/06/2011 11:30 PM CDT [facility] Chol HDL Ratio 2.3 <=5.0 12/06/2011 11:30 PM CDT [facility] Blood specimen (specimen) BLOOD SPECIMEN / Unknown 12/06/2011 10:48 PM CDT 12/06/2011 10:56 PM CDT Narrative [facility] - 12/06/2011 11:30 PM CDT Lipid Profile Comment: Adult references ranges are the recommendation of the [place] [employer] , for those patients >18 years old. Cholestrol LDL Triglycerides HDL -- -- -- <40 Low <170 <100 <150 Desirable 170-199 130-159 150-199 Borderline High >200 160-189 200-499 >60 High Risk factor status for Coronary Artery Disease is necessary to place these lab findings in perspective. Note: This test is for fasting patients only. A non-fasting state may alter some of these results. Paresh Granger MD LAB - CHEMISTRY ORDNorman WATTS Performing Organization Address City/[facility]/ZIP Co de Phone Number [facility] [address] [place] [address] * (ABNORMAL) CARDIOLIPIN ANTIBODY PANEL (04/09/2010 5:40 PM OBSTETRICS TEACHER) Pathologist [facility] Cardiolipin Antibody IgG 3.56 <23 GPL [facility] Cardiolipin Antibody IgM 11.45(H) <11 MPL [facility] BLOOD SPECIMEN / Unknown 04/09/2010 5:40 PM OBSTETRICS TEACHER 04/09/2010 5:47 PM OBSTETRICS TEACHER Narrative Resulting Agency Comment Performed By [facility] [address] [place] [address] Cele Palacio MD LAB - SEROLOGY ORDNorman WATTS Performing Organization Address [facility] Co de Phone Number [facility] [address] [place] [address] * (ABNORMAL) LUPUS ANTICOAGULANT PANEL (04/09/2010 5:40 PM OBSTETRICS TEACHER) PT (Lupus Anticoag) 13.7 12.0 - 15.5 seconds [facility] PTT Lupus Anticoagulant 38 32 - 48 seconds [facility] dRVVT 32(L) 33 - 44 seconds [facility] Thrombin Time Not Applicable 14.7 - 19.5 seconds [facility] Reptilase Time Not Applicable <=21.9 seconds [facility] PTT Heparin Neutralized Not Applicable 32 - 48 seconds [facility] PTT-D Corrected Not Applicable 32 - 48 seconds [facility] Platelet Neutralization Not Applicable Negative seconds [facility] dRVVT 1:1 Mix Not Applicable 33 - 44 seconds [facility] dRVVT Confirmatory Test Not Applicable Negative [facility] Hexagonal Phospholipid Neutral Not Applicable Negative [facility] Interpretation Lupus Anticoagulant [facility] Comment: Lupus anticoagulant not detected. The phospholipid-dependent screening tests (PTT, DRVVT) are not prolonged. Lupus anticoagulant antibodies are heterogeneous and antibody titers fluctuate over time. Laboratory tests used to identify lupus anticoagulants demonstrate variable sensitivity. If there is strong clinical suspicion for antiphospholipid antibody syndrome (APS), consider testing for cardiolipin and beta-2 glycoprotein 1 antibodies (IgG and IgM) if this testing has not already been performed. BLOOD SPECIMEN / Unknown 04/09/2010 5:40 PM OBSTETRICS TEACHER 04/09/2010 5:47 PM OBSTETRICS TEACHER Narrative [facility] - 04/12/2010 2:06 AM OBSTETRICS TEACHER 1 Resulting Agency Comment Performed By [facility] [address] [place] [phone] Cele Palacio MD LAB - HEMATOLOGY OR DERABLES Performing Organization Address [facility] Co de Phone Number [facility] [address] [place] [address] * SM ANTIBODY TY (04/09/2010 5:40 PM OBSTETRICS TEACHER) Pathologist [facility] Ron (TY) Antibody 2.96 SEE BELOW EU [facility] Comment: <20 Negative 20-25 Borderline Positive >25 Positive Interpretation Autoimmune Antibody [facility] Comment: Borderline results have been retested. Test Skein Winder states that if results are still borderline, the test sample has no significant antibodies. BLOOD SPECIMEN / Unknown 04/09/2010 5:40 PM OBSTETRICS TEACHER 04/09/2010 5:46 PM OBSTETRICS TEACHER Narrative Resulting Agency Comment Performed By [facility] [address] [place] [address] Cele Palacio MD LAB - CHEMISTRY ORD ERABLES Performing Organization Address [facility] Co de Phone Number [facility] [address] [place] [address] * ACTIVATED SLUDGE OPERATOR ANTIBODY (04/09/2010 5:40 PM OBSTETRICS TEACHER) Pathologist [facility] ACTIVATED SLUDGE OPERATOR Antibody 7.98 SEE BELOW EU [facility] Comment: <20 Negative 20-25 Borderline Positive >25 Positive Interpretation Autoimmune Antibody [facility] Comment: Borderline results have been retested. Test Skein Winder states that if results are still borderline, the test sample has no significant antibodies. BLOOD SPECIMEN / Unknown 04/09/2010 5:40 PM OBSTETRICS TEACHER 04/09/2010 5:46 PM OBSTETRICS TEACHER Narrative Resulting Agency Comment Performed By [facility] [address] [place] [address] Cele Palacio MD LAB - CHEMISTRY ORD ERABLES Performing Organization Address [facility] Co de Phone Number [facility] [address] [place] [address] * RHEUMATOID FACTOR BLOOD SCREEN (04/09/2010 5:40 PM OBSTETRICS TEACHER) Rheumatoid Factor Negative Negative [facility] BLOOD SPECIMEN / Unknown 04/09/2010 5:40 PM OBSTETRICS TEACHER 04/09/2010 5:47 PM OBSTETRICS TEACHER Cele Palacio MD LAB - CHEMISTRY ORD ERABLES Performing Organization Address [facility] de Phone Number [facility] [address] [place] [address] * C-REACTIVE PROTEIN (04/09/2010 5:40 PM OBSTETRICS TEACHER) C-Reactive Protein <0.5 <1.0 mg/dl mg/dl [facility] BLOOD SPECIMEN / Unknown 04/09/2010 5:40 PM OBSTETRICS TEACHER 04/09/2010 5:47 PM OBSTETRICS TEACHER Cele Palacio MD LAB - CHEMISTRY ORD ERABLES Performing Organization Address City/[facility] Co de Phone Number [facility] [address] [place] [address] * ABILIO BLOOD SCREEN (04/09/2010 5:40 PM OBSTETRICS TEACHER) ABILIO Negative Negative [facility] BLOOD SPECIMEN / Unknown 04/09/2010 5:40 PM OBSTETRICS TEACHER 04/09/2010 5:46 PM OBSTETRICS TEACHER Narrative Resulting Agency Comment Performed By [facility] [address] [place] [address] Cele Palacio MD LAB - CHEMISTRY ORD ERABLES Performing Organization Address City/[facility] Co de Phone Number [facility] [address] [place] [address] * THYROID ANTIBODY PANEL (04/09/2010 5:40 PM OBSTETRICS TEACHER) Thyroglobulin Antibody <0.9 0.0 - 4.0 IU/ml [facility] Thyroid Peroxidase TPO Antibody 1.5 0.0 - 9.0 IU/ml [facility] Comment Ref Lab [facility] Comment: TEST INFORMATION: Thyroglobulin Antibody A value of 4.0 IU/mL or less indicates a negative result for thyroglobulin antibodies. BLOOD SPECIMEN / Unknown 04/09/2010 5:40 PM OBSTETRICS TEACHER 04/09/2010 5:47 PM OBSTETRICS TEACHER Narrative [facility] - 04/12/2010 2:06 AM OBSTETRICS TEACHER 1 Resulting Agency Comment Performed By [facility] [address] [place] [phone] Cele Palacio MD LAB - CHEMISTRY ORD ERABLES Performing Organization Address [facility] de Phone Number [facility] [address] [place] [address] * COMPLEMENT TOTAL (04/09/2010 5:40 PM OBSTETRICS TEACHER) Pathologist [facility] Complement Total CH50 98 60 - 144 Units [facility] Comment Ref Lab [facility] Comment: REFERENCE INTERVAL: Complement Activity, Total EIA 59 Units or less .......... Low 60-144 Units .............. Normal 145 Units or greater ....... High BLOOD SPECIMEN / Unknown 04/09/2010 5:40 PM OBSTETRICS TEACHER 04/09/2010 5:47 PM OBSTETRICS TEACHER Narrative [facility] - 04/13/2010 9:33 AM OBSTETRICS TEACHER 1 Resulting Agency Comment Performed By [employer] [place], [place] [phone] Cele Palacio MD LAB - CHEMISTRY ORD ERABLES Performing Organization Address [facility] Co de Phone Number [facility] [address] [place] [address] * BETA-2 GLYCOPROTEIN 1 ANTIBODY IGG/IGM PANEL (04/09/2010 5:40 PM OBSTETRICS TEACHER) Beta-2 Glycoprotein Antibody IgG 1 0 - 20 SGU [facility] Beta-2 Glycoprotein Antibody IgM 2 0 - 20 SMU [facility] Comment Ref Lab [facility] Comment: TEST INFORMATION: Beta-2 Glycoprotein I Abs, IgG and IgM An IgG and/or IgM result of greater than 20 SGU and/or SMU on at least two occasions and at least 12 weeks apart is suggestive of antiphospholipid syndrome. Diagnosis should NOT be made solely on the basis of a single specimen. BLOOD SPECIMEN / Unknown 04/09/2010 5:40 PM OBSTETRICS TEACHER 04/09/2010 5:47 PM OBSTETRICS TEACHER Narrative [facility] - 04/12/2010 2:06 AM OBSTETRICS TEACHER 1 Resulting Agency Comment Performed By [facility] [address] [place] [phone] Cele Palacio MD LAB - CHEMISTRY ORD ERABLES Performing Organization Address City/[facility] Co de Phone Number [facility] [address] [place] [address] * SS-B ANTIBODY (04/09/2010 5:40 PM OBSTETRICS TEACHER) SS-B Antibody 9.83 SEE BELOW EU [facility] Comment: <20 Negative 20-25 Borderline Positive >25 Positive Interpretation Autoimmune Antibody [facility] Comment: Borderline results have been retested. Test Skein Winder states that if results are still borderline, the test sample has no significant antibodies. BLOOD SPECIMEN / Unknown 04/09/2010 5:40 PM OBSTETRICS TEACHER 04/09/2010 5:46 PM OBSTETRICS TEACHER Narrative Resulting Agency Comment Performed By [facility] [address] [place] [address] Cele Palacio MD LAB - CHEMISTRY ORD ERABLES Performing Organization Address City/[facility]/ZIP Co de Phone Number [facility] [address] [place] [address] * SS-A ANTIBODY (04/09/2010 5:40 PM OBSTETRICS TEACHER) SS-A Antibody 5.55 SEE BELOW EU [facility] Comment: <20 Negative 20-25 Borderline Positive >25 Positive Interpretation Autoimmune Antibody [facility] Comment: Borderline results have been retested. Test Skein Winder states that if results are still borderline, the test sample has no significant antibodies. BLOOD SPECIMEN / Unknown 04/09/2010 5:40 PM OBSTETRICS TEACHER 04/09/2010 5:46 PM OBSTETRICS TEACHER Narrative Resulting Agency Comment Performed By [facility] [address] [place] [address] Cele Palacio MD LAB - CHEMISTRY ORD ERABLES Performing Organization Address [facility] de Phone Number [facility] [address] [place] [address] * SCL70 ANTIBODY (04/09/2010 5:40 PM OBSTETRICS TEACHER) SCL-70 Antibody 1.22 SEE BELOW [facility] Comment: <20 Negative 20-25 Borderline Positive >25 Positive Interpretation Autoimmune Antibody [facility] Comment: Borderline results have been retested. Test Skein Winder states that if results are still borderline, the test sample has no significant antibodies. BLOOD SPECIMEN / Unknown 04/09/2010 5:40 PM OBSTETRICS TEACHER 04/09/2010 5:46 PM OBSTETRICS TEACHER Narrative Resulting Agency Comment Performed By [facility] [address] [place] [address] Cele Palacio MD LAB - CHEMISTRY ORD ERABLES Performing Organization Address [facility] de Phone Number [facility] [address] [place] [phone] * DNA ANTIBODY DOUBLE STRAND (04/09/2010 5:40 PM OBSTETRICS TEACHER) dsDNA Antibody 1.67 SEE BELOW IU [facility] Comment: <25 Negative 25-30 Borderline Positive 30-60 Low Positive 60-200 Positive >200 Strong Positive Comment dsDNA [facility] Comment: dsDNA antibodies are screened using an PARESH assay. Positive results are reflexed to titer by IFA. BLOOD SPECIMEN / Unknown 04/09/2010 5:40 PM OBSTETRICS TEACHER 04/09/2010 5:46 PM OBSTETRICS TEACHER Narrative Resulting Agency Comment Performed By [facility] [address] [place] [address] Cele Palacio MD LAB - HEMATOLOGY OR DERABLES Performing Organization Address [facility]/ZIP Co de Phone Number [facility] [address] [place] [address] * (ABNORMAL) VITAMIN D 25-HYDROXY (04/09/2010 5:40 PM OBSTETRICS TEACHER) Pathologist [facility] Vitamin D, 25 Hydroxy 16.56(L) 30 - 100 ng/ml [facility] BLOOD SPECIMEN / Unknown 04/09/2010 5:40 PM OBSTETRICS TEACHER 04/09/2010 5:47 PM OBSTETRICS TEACHER Narrative Resulting Agency Comment Performed By [facility] [address] [place] [address] Cele Palacio MD LAB - CHEMISTRY ORD ERABLES Performing Organization Address [facility] Co de Phone Number [facility] [address] [place] [address] * MPO/GA 3 AUTOANTIBODIES PANEL (04/09/2010 5:40 PM OBSTETRICS TEACHER) Pathologist [facility] Myeloperoxidase Antibody 0 0 - 19 AU/mL [facility] Serine Protease 3 1 0 - 19 AU/mL [facility] Comment Ref Lab [facility] Comment: REFERENCE INTERVAL: Myeloperoxidase Abs, IgG 19 AU/mL or Less ......... Negative 20-25 AU/mL .............. Equivocal 26 AU/mL or Greater ...... Positive Approximately 90% of patients with a P-ANCA pattern by IFA have antibodies specific for MPO. Approximately 85% of patients with a C-ANCA pattern by IFA have antibodies specific for PR3. REFERENCE INTERVAL: Serine Protease 3, IgG 19 AU/mL or Less ........ Negative 20-25 AU/mL ............. Equivocal 26 AU/mL or Greater ..... Positive Approximately 90% of patients with a P-ANCA pattern by IFA have antibodies specific for MPO. Approximately 85% of patients with a C-ANCA pattern by IFA have antibodies specific for PR3. BLOOD SPECIMEN / Unknown 04/09/2010 5:40 PM OBSTETRICS TEACHER 04/09/2010 5:47 PM OBSTETRICS TEACHER Narrative [facility] - 04/11/2010 11:18 PM OBSTETRICS TEACHER 1 Resulting Agency Comment Performed By [facility] [address] [place] [phone] Cele Palacio MD LAB - CHEMISTRY ORD ERABLES Performing Organization Address City/[facility]/ZIP Co de Phone Number [facility] [address] [place] [address] * SED RATE WESTERGREN AUTO (04/09/2010 5:40 PM OBSTETRICS TEACHER) Pathologist [facility] Erythrocyte Sedimentation Rate Westergren 12 0 - 13 mm/Hr [facility] BLOOD SPECIMEN / Unknown 04/09/2010 5:40 PM OBSTETRICS TEACHER 04/09/2010 5:47 PM OBSTETRICS TEACHER Cele Palacio MD LAB - HEMATOLOGY OR DERABLES Performing Organization Address [facility] Co de Phone Number [facility] [address] [place] [address] * COMPLEMENT C4 (04/09/2010 5:40 PM OBSTETRICS TEACHER) Pathologist [facility] Complement C4 25 12 - 36 mg/dl [facility] BLOOD SPECIMEN / Unknown 04/09/2010 5:40 PM OBSTETRICS TEACHER 04/09/2010 5:47 PM OBSTETRICS TEACHER Cele Palacio MD LAB - SEROLOGY ORDE RABLES Performing Organization Address [facility] Co de Phone Number [facility] [address] [place] [address] * CK BLOOD (04/09/2010 5:40 PM OBSTETRICS TEACHER) Pathologist [facility] CK 58 50 - 295 Units/L [facility] BLOOD SPECIMEN / Unknown 04/09/2010 5:40 PM OBSTETRICS TEACHER 04/09/2010 5:47 PM OBSTETRICS TEACHER Cele Palacio MD LAB - CHEMISTRY ORD ERABLES Performing Organization Address [facility] Co de Phone Number [facility] [address] [place] [address] * TSH (04/09/2010 5:40 PM OBSTETRICS TEACHER) Pathologist [facility] TSH 2.644 0.490 - 4.670 mcIU/mL [facility] BLOOD SPECIMEN / Unknown 04/09/2010 5:40 PM OBSTETRICS TEACHER 04/09/2010 5:47 PM OBSTETRICS TEACHER Cele Palacio MD LAB - CHEMISTRY ORD ERABLES Performing Organization Address [facility] Co de Phone Number [facility] [address] [place] [address] * COMPLEMENT C3 (04/09/2010 5:40 PM OBSTETRICS TEACHER) Complement C3 144 85 - 193 mg/dl [facility] BLOOD SPECIMEN / Unknown 04/09/2010 5:40 PM OBSTETRICS TEACHER 04/09/2010 5:47 PM OBSTETRICS TEACHER Cele Palacio MD LAB - CHEMISTRY ORD ERABLES Performing Organization Address [facility] de Phone Number [facility] [address] [place] [phone] Care Teams Pediatric Allergist Relationship Specialty Start Date End Date Wily Cedeno MD [address] [place] [phone] PCP - General 09/03/21
--- OUTSIDE RECORDS SUMMARY | 2024-07-22 11:33 | XMS_ITS | Referral Summary ---
Author Organization [facility] Address [address] [place] [address] Care Team Providers Care Job Placement Counselor Name Role Phone Wily Cedeno MD Primary Care Provider Source Comments [facility],non-owned Affiliates and Associated Physician Practices is amultiple site organization consisting of ambulatory clinics and hospital sitesin [place], [place], [place] and [place]. This disclosure is being madepursuant to the Care Everywhere program and may not contain all information available regarding this patient. Last updated 18.[facility] [employer] Allergies Active Allergy Reactions Criticality Noted Date Comments Hydromorphone Itching 12/09/2011 Medications * Be aware that medications may not be up to date on this document. Alwaysverify current medications with the patient. Medication Sig Dispensed Refills Start Date End Date Status FIBER PO Take 1 Tab by mouth 3 times daily. Active lansoprazole (PREVACID) 30 MG capsule Take 1 Cap by mouth 2 times daily,before breakfast and supper. 60 Cap 5 03/03/2014 Active polyethylene glycol 3350 (MIRALAX) powder Take 8.5 g by mouth once daily. 500 g 5 03/03/2014 Active Active Problems Problem Noted Date Diagnosed Date Obese 12/09/2011 Cholecystitis 12/07/2011 Overview (12/08/2011): H/o chronic epigastric abdominal pain, recently increasing [...] surgery consult - continue NPO status with MIVF - continue IV antibiotics- Unasyn (ampicillin-sulbactam) for 1g Q6 hours - day 2 - Vital signs Q4 hours - Strict intake and output Gallstone Pancreatitis 12/07/2011 Overview (12/10/2011): Maria L had epigastric abdominal pain radiating [...] IV - consider nutrition consult s/p surgery Social History Tobacco Use Types Packs/Day Years [...] Mass Index 26.8 03/03/2014 4:11 PM CDT Plan of Treatment Not on file Care Teams Job Placement Counselor Relationship Specialty Start Date End Date Wily Cedeno MD [address] [place] [phone] PCP - General 09/03/21
--- OUTSIDE RECORDS SUMMARY | 2024-07-22 11:33 | XMS_ITS | Clinical Summary ---
Author Organization [facility] Address [address] [place] [address] Care Team Providers Care Transmitter Operator Name Role Phone Wily Cedeno MD Primary Care Provider [phone] Source Comments [facility],non-owned Affiliates and Associated Physician Practices is amultiple site organization consisting of ambulatory clinics and hospital sitesin [place], [place], [place] and [place]. This disclosure is being madepursuant to the Care Everywhere program and may not contain all information available regarding this patient. Last updated 18.[facility] [employer] Allergies Active Allergy Reactions Criticality Noted Date [...] cm (5' 5.55 ) 03/03/2014 4:11 PM CDT Body Mass Index 26.8 03/03/2014 4:11 PM CDT Plan of Treatment Health Maintenance Due Date Last Done Comments PAP SMEAR 1996 HIV SCREENING 11/28/2011 HEPATITIS C SCREENING 11/23/2014 DTAP/TDAP/TD VACCINES (1 - Tdap) 11/28/2015 HEPATITIS B VACCINE (1 of 3 - 19+ 3-dose series) 11/28/2015 COVID-19 VACCINE ( - 2023-2 5 season) 2024 INFLUENZA VACCINE (#1) 2024 DEPRESSION SCREENING 05/12/2024 ZOSTER VACCINE (1 of 2) 2046 HIB VACCINE Aged Out No longer eligi ble based on patient's age to complete this topic HPV VACCINE Aged Out No longer eligi ble based on patient's age to complete this topic MENINGOCOCCAL (Group B) VACC INE SHARED DECISION-MAKING Aged Out No longer eligibl e based on patient's age to complete this topic MENINGOCOCCAL GROUPS A/C/Y/W VACCINE Aged Out No longer eligible b ased on patient's age to complete this topic PNEUMOCOCCAL VACCINE Aged Out No long er eligible based on patient's age to complete this topic Care Teams Transmitter Operator Relationship Specialty Start Date End Date Wily Cedeno MD [address] [facility] [address] [place] [address] PCP - General 09/03/21
--- OUTSIDE RECORDS SUMMARY | 2024-07-22 11:33 | XMS_ITS | Clinical Summary ---
Author Organization [facility] Address [address] [place] [address] Phone Care Team Providers Care Bell Attendant Name Role Phone Wily Cedeno MD Primary Care Provider [phone] Allergies Active Allergy Reactions Criticality Noted Date Comments Hydromorphone Hives 08/19/2015 Medications albuterol (VENTOLIN HFA) 108 (90 BASE) MCG/ACT Aerosol SolutionIndicat ions:States only takes PRN, but takes 8 puffs all at once when she takes it take 1-2 Puffs by inhalation every 4 hours as needed. Indications: States only takes PRN, but takes 8 puffs all at once when she takes it 8.5 g 0 6 Active Norgestim-Eth Estrad Triphasic (RCA-ZS-GCJNYAP C PO) Take by mouth. Activ e predniSONE (DELTASONE) 50 MG Tablet Take 1 Tablet by mouth daily. 4 Tablet 4 Active albuterol 108 (90 Base) MCG/ACT Aerosol Solution take 2 Puffs by inhalation every 6 hours as needed for Wheezing. 6.7 g 4 Active Active Problems Problem Noted Date Diagnosed Date Tarsal tunnel syndrome of left side 10/13/2017 Tarsal tunnel syndrome of right side 10/13/2017 Flat foot 10/13/2017 Pain in both feet 10/13/2017 Atrial fibrillation 08/19/2015 Family History Medical History Relation Name Comments Hypertension Father High Cholesterol Mother Hypertension Mother Relation Name Status Comments Father Mother Social History Tobacco Use Types Packs/Day Years Used Date Smoking Tobacco: Never Smokeless Tobacco: Never Alcohol Use Standard Drinks/Week Comments Yes 0 (1 standard drink = 0.6 oz pur e alcohol) Comments No Sex and Gender Information Value Date Recorded Sex Assigned at Not on file Legal Sex Female 10:56 PM CDT Gender Identity Not on file Sexual Orientation Not on file Last Filed Vital Signs Vital Sign Reading Time Taken Comments Blood Pressure 143/99 04/06/2024 8:18 PM STITCHING MACHINE FEEDER OR OFFBEARER Pulse 84 04/06/2024 8:18 PM STITCHING MACHINE FEEDER OR OFFBEARER Temperature 35.9 C (96.6 F) 04/06/2024 8:18 PM STITCHING MACHINE FEEDER OR OFFBEARER Respiratory Rate 18 04/06/2024 8:18 PM STITCHING MACHINE FEEDER OR OFFBEARER Oxygen Saturation 97% 04/06/2024 8:18 PM STITCHING MACHINE FEEDER OR OFFBEARER Inhaled Oxygen Concentration - - Weight 106.1 kg (234 lb) 04/06/2024 8:18 PM STITCHING MACHINE FEEDER OR OFFBEARER Height 175.3 cm (5' 9 ) 04/06/2024 8:18 PM STITCHING MACHINE FEEDER OR OFFBEARER Body Mass Index 34.56 04/06/2024 8:18 PM STITCHING MACHINE FEEDER OR OFFBEARER Plan of Treatment Health Maintenance Due Date Last Done Comments Hepatitis C Virus (HCV) Screening 1996 Pap Smear 2017 Influenza Immunization (#1) 2024 10/08/2023 SARS-COV-2 Immunization ( season) 2024 Respiratory Syncytial Virus (RSV) Immunization (Adult) (1 - 1-dose 75+ series) 11/28/2071 Hepatitis B Immunization Completed 998, 1996, 1996 Human Papillomavirus (HPV) Immunization Discontinued 12/25/2010, 08/28/2009, 11/28/2006 Meningococcal Immunization (ACWY) Completed 01/05/2014, 08/28/2009 DTaP/Tdap/Td Immunization Discontinued 2023, 11/28/2006, 01/22/2002, Additional history exists TdaP Immunization Completed 10/08/2023, 11/28/2006 Pneumococcal Immunization Combined Aged Out No longer eligible based on patient's age to complete this topic Rotavirus Immunization Aged Out No lo nger eligible based on patient's age to complete this topic Advance Directives * Full Code (Latest Code Status on File) Date Activated Date Inactivated Comments 08/19/2015 8:34 AM 08/20/2015 4:03 PM CPR-Full Saige tment: FULL ARREST: Attempt Resuscitation/CPR wit intubation and mechanical ventilation. PRE-ARREST: Use entire range of life support measures to stabilize the patient. Care Teams Bell Attendant Relationship Specialty Start Date End Date Wily Cedeno MD [address] [place] [address] [facility] [address] [place] [address] PCP - General Family Medicine 04/06/24
[2024-07-22 11:35] LABS: Bacteria Urine 2+ /hpf; RBC Urine >100 /hpf (0-2)
[2024-07-22 11:36] LABS: Squamous Epithelial Cell Urine Occasional /hpf (Few)
--- OUTSIDE RECORDS SUMMARY | 2024-07-22 12:59 | XMS_ITS | Clinical Summary ---
Author Organization [facility] Address [address] [place] [address] Phone Care Team Providers Care Air Defence Officer Name Role Phone Wily Cedeno MD Primary Care Provider [phone] Allergies Active Allergy Reactions Criticality Noted Date [...] g 0 6 Active Norgestim-Eth Estrad Triphasic (MTB-AO-MAULOOL C PO) Take by mouth. Activ e [...] Comments Blood Pressure 143/99 04/06/2024 8:18 PM WATER AND SEWER SYSTEMS SUPERVISOR Pulse 84 04/06/2024 8:18 PM WATER AND SEWER SYSTEMS SUPERVISOR Temperature 35.9 C (96.6 F) 04/06/2024 8:18 PM WATER AND SEWER SYSTEMS SUPERVISOR Respiratory Rate 18 04/06/2024 8:18 PM WATER AND SEWER SYSTEMS SUPERVISOR Oxygen Saturation 97% 04/06/2024 8:18 PM WATER AND SEWER SYSTEMS SUPERVISOR Inhaled Oxygen Concentration - - Weight 106.1 kg (234 lb) 04/06/2024 8:18 PM WATER AND SEWER SYSTEMS SUPERVISOR Height 175.3 cm (5' 9 ) 04/06/2024 8:18 PM WATER AND SEWER SYSTEMS SUPERVISOR Body Mass Index 34.56 04/06/2024 8:18 PM WATER AND SEWER SYSTEMS SUPERVISOR Plan of Treatment Health Maintenance Due Date [...] measures to stabilize the patient. Care Teams Air Defence Officer Relationship Specialty Start Date End Date Wily Cedeno MD [address] [place] [address] [facility] [address] [place] [address] PCP - General Family Medicine 04/06/24
--- OUTSIDE RECORDS SUMMARY | 2024-07-22 12:59 | XMS_ITS | Clinical Summary ---
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 Gender Identity Not on file Sexual Orientation [...] Comments Blood Pressure 130/91 04/21/2021 10:44 PM MERCHANT MARINER Pulse 100 04/21/2021 10:43 PM MERCHANT MARINER Temperature 36.7 C (98.1 F) 04/21/2021 10:43 PM MERCHANT MARINER Respiratory Rate 18 04/21/2021 10:43 PM MERCHANT MARINER Oxygen Saturation 100% 04/21/2021 10:43 PM MERCHANT MARINER Inhaled Oxygen Concentration - - Weight 87.5 [...] Completed 12/25/2010, 08/10, 11/28/2006 Insurance [facility] [employer] OPEN ACCESS Care Teams Production Support Analyst Relationship Specialty Start Date End Date Wily Cedeno MD [address] [place] [address] [address]ON [address] [address] PCP - General Family Medicine 06/18/22
--- OUTSIDE RECORDS SUMMARY | 2024-07-22 12:59 | XMS_ITS | Patient Health Summary ---
Author Organization [facility] Address [address] [place] [address] Care Team Providers Care Supervisor [employer] Name Role Phone Wily Cedeno MD Primary Care Provider [phone] Note from [facility],non-owned Affiliates and Associated Physician Practices is amultiple site organization consisting of ambulatory clinics and hospital sitesin [place], [place], [place] and [place]. This disclosure is being madepursuant to the Care Everywhere program and may not contain all information available regarding this patient. Last updated 18.[facility] Allergies * Hydromorphone(Itching) Medications * Be [...] AB)(Performed 04/09/2010) Performed for Raynaud's phenomenon * MPO/KY 3 AUTOANTIBODIES PANEL(Performed 04/09/2010) Performed for Raynaud's phenomenon * ABILIO BLOOD SCREEN W/REFLEX TITER(Performed 04/09/2010) Performed for Raynaud's phenomenon * SS-B (SJOGREN'S) ANTIBODY(Performed 04/09/2010) Performed for Raynaud's phenomenon * SS-A (SJOGREN'S) ANTIBODY(Performed 04/09/2010) Performed for Raynaud's phenomenon * RON (SM) ANTIBODY TY(Performed 04/09/2010) Performed for Raynaud's phenomenon * SCLERODERMA 70 (SCL) ANTIBODY(Performed 04/09/2010) Performed for Raynaud's phenomenon * SURFACING TECHNICIAN ANTIBODY(Performed 04/09/2010) Performed for Raynaud's phenomenon * DNA ANTIBODY DOUBLE STRANDED(Performed 04/09/2010) Performed for Raynaud's phenomenon Results * LAB RESULTS ORDER (03/24/2014 2:23 PM PRODUCT GRADER) Only the most recent of2 resultswithin the time period is included. Narrative 03/24/2014 2:23 PM PRODUCT GRADER Ordered by an unspecified provider. Scanned Document [...] - 220 U/L 12/11/2011 12:31 PM CDT [facility] Blood specimen (specimen) BLOOD SPECIMEN / Unknown 12/11/2011 11:35 AM CDT 12/11/2011 11:54 AM CDT Niharika Francois MD LAB - CHEMISTRY OR DERABLES Performing Organization Address [facility]/ZIP Co de Phone Number [facility] [address] [place] [address] * (ABNORMAL) AMYLASE BLOOD (12/11/2011 11:35 AM CDT) Only the most recent of6 resultswithin the time period is included. Amylase 96(H) 5 - 65 U/L 12/11/2011 12:31 PM CDT [facility] Blood specimen (specimen) BLOOD SPECIMEN / Unknown 12/11/2011 11:35 AM CDT 12/11/2011 11:54 AM CDT Niharika Francois MD LAB - CHEMISTRY OR DERABLES Performing Organization Address [facility] Co de Phone Number [facility] [address] [place] [address] * FL OR CHOLANGIOGRAM (12/10/2011 6:28 PM CDT) Anatomical Region Laterality Modality Radio Fluoroscop y 12/11/2011 1:18 PM CDT Impressions 12/11/2011 2:50 PM CDT No filling defect is identified. D: Prashanth Chopra D.O. Narrative 12/11/2011 2:50 PM CDT Exam: Intraoperative cholangiogram. Date: 12/10/2011 at 5:57 p.m. History: Cholecystitis. Findings: No prior study is available for comparison. Five intraoperative images were obtained with limited dudlo-uq-smbv. Two trocars are seen within the aonpq-ul-ctzx. Contrast is seen outlining the cystic duct, [...] Five intraoperative images were obtained with limited typpn-yy-hgbi. Two trocars are seen within the dxzwg-bk-fkjf. Contrast is seen outlining the cystic duct, common bile duct, common hepatic duct, right and left hepatic ducts. No extravasation of the contrast is identified. Contrast is seen sequentially filling the duodenum. IMPRESSION No filling defect is identified. D: Prashanth Chopra D.O. Irving Banegas MD FLUOROSCOPY ORDERABL ES * GROSS EXAM PATHOLOGY (STL) (12/10/2011 6:15 PM CDT) Case Report Surgical Pathology Report Case: [id number] Authorizing Provider: Irving Banegas MD Ordering Provider: Irving Banegas MD Ordering Location: [facility] Collected: 12/10/2011 6:15 PM Pathologist: Leora Brown Received: 12/11/2011 6:50 AM Signed Out: 12/12/2011 1:16 PM (Final) Specimen: Gallbladder 12/12/2011 1:16 PM T [facility] Final Diagnosis GALLBLADDER: - CHRONIC CHOLECYSTITIS AND CHOLELITHIASIS. 12/12/2011 1:16 PM T [facility] Clinical History The patient is a 16-year-old girl with cholecystitis who underwent laparoscopic cholecystectomy. 12/12/2011 1:16 PM T [facility] Gross Description Submitted fixed in formalin [...] outside the gallbladder within the specimen container. Silk Worker sections from the gallbladder and cystic duct are submitted in cassette A1. (CT/mal) 12/12/2011 1:16 PM T [facility] Microscopic Description 1 H&E. The gallbladder histologically shows chronic inflammation of the mucosa with occasional Rokitansky-Aschof f sinuses. (CV/mal) 12/12/2011 1:16 PM T [facility] Synoptic Report 12/12/2011 1:16 PM T [facility] Disclaimer This case has been personally reviewed and interpreted by the attending (teaching) pathologist. 12/12/2011 1:16 PM T [facility] Miscellaneous samples (specimen) ENTIRE GALLBLADDER / Unknown 12/10/2011 6:15 PM CDT 12/11/2011 6:50 AM CDT Irving Banegas MD LAB - PATHOLOGY/CYTO LOGY ORDERABLES Performing Organization Address City/State/[facility] Co de Phone Number [facility] [place] [address] * DIFFERENTIAL MANUAL (12/10/2011 6:19 AM CDT) Only the most recent of3 resultswithin the time period is included. WBC Auto 7.6 X(10)9/L 12/10/2011 8:43 AM T [facility] Neutrophil % Manual 55 24 - 66 % 12/10/2011 8:43 AM T [facility] Lymphocytes % Manual 29 22 - 61 % 12/10/2011 8:43 AM T [facility] Monocytes % Manual 9 3 - 15 % 12/10/2011 8:43 AM T [facility] Eosinophils % Manual 5 0 - 10 % 12/10/2011 8:43 AM [facility] Atypical Lymphocyte % Manual 2 % 12/10/2011 8:43 AM T [facility] Cells Counted 100 # cells 12/10/2011 8:43 AM [facility] Platelet Estimation Normal 12/10/2011 8:43 AM [facility] WBC Morph Normal 12/10/2011 8:43 AM [facility] Anisocytosis Slight 12/10/2011 8:43 AM T [facility] Blood specimen (specimen) BLOOD SPECIMEN / Unknown 12/10/2011 6:19 AM CDT 12/10/2011 6:33 AM CDT Shila Zafar MD LAB - HEMATOLOGY ORDERABLES [facility] [address] [place] [address] * (ABNORMAL) CBC W AUTO DIFFERENTIAL (12/10/2011 6:19 AM CDT) Only the most recent of5 resultswithin the time period is included. WBC 7.6 4.5 - 14.5 x10^9/L 12/10/2011 8:43 AM T [facility] RBC 4.13 4.10 - 5.10 x10^12/L 12/10/2011 8:43 AM [facility] Hemoglobin 11.6(L) 12.0 - 16.0 g/dL 12/10/2011 8:43 AM [facility] Hematocrit 33.7(L) 36.0 - 47.0 % 12/10/2011 8:43 AM [facility] MCV 81.6 78.0 - 102.0 fl 12/10/2011 8:43 AM T [facility] MCH 28.1 25.0 - 35.0 pg 12/10/2011 8:43 AM [facility] MCHC 34.4 31.0 - 37.0 gm/dL 12/10/2011 8:43 AM [facility] RDW-CV 12.4 11.5 - 14.0 % 12/10/2011 8:43 AM [facility] MPV 11.2(H) 6.0 - 9.5 fl 12/10/2011 8:43 AM [facility] nRBC Auto 0 12/10/2011 8:43 AM [facility] Hematology Reflex Status Manual Diff to follow 12/10/2011 8:43 AM [facility] Platelet Count 250 100 - 400 x10^9/L 12/10/2011 8:43 AM [facility] Blood specimen (specimen) BLOOD SPECIMEN / Unknown 12/10/2011 6:19 AM CDT 12/10/2011 6:33 AM CDT Shila Zafar MD LAB - HEMATOLOGY ORDERABLES [facility] [address] [facility] [place] [address] * (ABNORMAL) COMPREHENSIVE METABOLIC PANEL (12/10/2011 6:19 AM CDT) Only the most recent of6 resultswithin the time period is included. Glucose 113(H) 70 - 105 mg/dL 12/10/2011 7:14 AM [facility] Sodium 140 136 - 145 mmol/L 12/10/2011 7:14 AM [facility] Potassium 5.1 3.5 - 5.1 mmol/L 12/10/2011 7:14 AM [facility] Chloride 107 98 - 107 mmol/L 12/10/2011 7:14 AM [facility] CO2 21 20 - 28 mmol/L 12/10/2011 7:14 AM [facility] Calcium 9.44 9.08 - 10.48 mg/dL 12/10/2011 7:14 AM [facility] Anion Gap 12 5 - 20 mmol/L 12/10/2011 7:14 AM [facility] BUN 5.4 5.3 - 18.7 mg/dL 12/10/2011 7:14 AM [facility] Creatinine 0.55(L) 0.61 - 1.07 mg/dL 12/10/2011 7:14 AM [facility] eGFR by MDRD ml/min/1. 73m2 12/10/2011 7:14 AM [facility] Comment:eGFR calculations ar e not performed for children under 18 years old. eGFR by MDRD ml/min/1. 73m2 12/10/2011 7:14 AM [facility] Comment:eGFR calculations ar e not performed for children under 18 years old. Alkaline Phosphatase 93(L) 100 - 390 U/L 12/10/2011 7:14 AM [facility] ALT 90(H) 8 - 65 U/L 12/10/2011 7:14 AM [facility] AST 21 3 - 35 U/L 12/10/2011 7:14 AM [facility] Protein Total 6.7 6.3 - 8.2 gm/dL 12/10/2011 7:14 AM CDT [facility] Albumin 3.5 3.3 - 4.9 gm/dL 12/10/2011 7:14 AM CDT [facility] Bilirubin Total 0.5 0.3 - 1.2 mg/dL 12/10/2011 7:14 AM CDT [facility] Blood specimen (specimen) BLOOD SPECIMEN / Unknown 12/10/2011 6:19 AM CDT 12/10/2011 6:33 AM CDT Shila Zafar MD LAB - CHEMISTRY O RDERABLES Performing Organization Address [facility] Co de Phone Number [facility] [address] [place] [address] * HCG URINE QUALITATIVE (12/09/2011 2:30 PM CDT) hCG Qualitative Urine Negative Negative 12/09/2011 9:53 PM CDT [facility] Urine specimen (specimen) URINE / Unknown 12/09/2011 2:30 PM CDT 12/09/2011 8:34 PM CDT Radha Berman MOLD TECHNICIAN-MANAGER WELDING LAB - URINAL YSIS ORDERABLES Performing Organization Address [facility] Co de Phone Number [facility] [address] [place] [address] * IP CONSULT TO PEDIATRIC SURGERY (12/07/2011 [...] signs of cholecystitis. Pt was transferred to [facility] for further management. No past medical [...] Sig Dispense Refill vitamin D, ergocalciferol, (DRISDOL) 69953 UNIT capsule Take 1 Cap by mouth [...] showed signs of cholecystitis. Pt wastransferred to [facility] for further management. No past medical [...] Sig Dispense Refill vitamin D, ergocalciferol, (DRISDOL) 89873 UNIT capsule Take 1 Cap bymouth every [...] - 69 U/L 12/06/2011 11:30 PM CDT [facility] Blood specimen (specimen) BLOOD SPECIMEN / Unknown 12/06/2011 10:48 PM CDT 12/06/2011 10:56 PM CDT Paresh Granger MD LAB - CHEMISTRY HARSH WATTS Performing Organization Address City/State/[facility] Co de Phone Number [facility] [address] [place] [address] * (ABNORMAL) LIPID PROFILE (12/06/2011 10:48 PM CDT) Cholesterol 145 <170 mg/dL 12/06/2011 11:30 PM CDT [facility] Triglycerides 39(L) 46 - 227 mg/dL 12/06/2011 11:30 PM CDT [facility] HDL Cholesterol 62 >40 mg/dL 2 11:30 PM CDT [facility] LDL Calculated 75 <100 mg/dL 12/06/2011 11:30 PM CDT [facility] Chol HDL Ratio 2.3 <=5.0 12/06/2011 11:30 PM CDT [facility] Blood specimen (specimen) BLOOD SPECIMEN / Unknown 12/06/2011 10:48 PM CDT 12/06/2011 10:56 PM CDT Narrative [facility] - 12/06/2011 11:30 PM CDT Lipid Profile Comment: Adult references ranges are the recommendation of the [place] , for those patients >18 [...] - CHEMISTRY ORDNorman WATTS Performing Organization Address City/[facility]/ZIP Co de Phone Number [facility] [address] [place] [address] * (ABNORMAL) CARDIOLIPIN ANTIBODY PANEL (04/09/2010 5:40 PM PRODUCT GRADER) Pathologist [facility] Cardiolipin Antibody IgG 3.56 <23 GPL [facility] Cardiolipin Antibody IgM 11.45(H) <11 MPL [facility] BLOOD SPECIMEN / Unknown 04/09/2010 5:40 PM PRODUCT GRADER 04/09/2010 5:47 PM PRODUCT GRADER Narrative Resulting Agency Comment Performed By [facility] [address] [place] [address] Cele Palacio MD LAB - SEROLOGY ORDNorman WATTS Performing Organization Address [facility] Co de Phone Number [facility] [address] [place] [address] * (ABNORMAL) LUPUS ANTICOAGULANT PANEL (04/09/2010 5:40 PM PRODUCT GRADER) PT (Lupus Anticoag) 13.7 12.0 - 15.5 seconds [facility] PTT Lupus Anticoagulant 38 32 - 48 seconds [facility] dRVVT 32(L) 33 - 44 seconds [facility] Thrombin Time Not Applicable 14.7 - 19.5 seconds [facility] Reptilase Time Not Applicable <=21.9 seconds [facility] PTT Heparin Neutralized Not Applicable 32 - 48 seconds [facility] PTT-D Corrected Not Applicable 32 - 48 seconds [facility] Platelet Neutralization Not Applicable Negative seconds [facility] dRVVT 1:1 Mix Not Applicable 33 - 44 seconds [facility] dRVVT Confirmatory Test Not Applicable Negative [facility] Hexagonal Phospholipid Neutral Not Applicable Negative [facility] Interpretation Lupus Anticoagulant [facility] Comment: Lupus anticoagulant not detected. The [...] BLOOD SPECIMEN / Unknown 04/09/2010 5:40 PM PRODUCT GRADER 04/09/2010 5:47 PM PRODUCT GRADER Narrative [facility] - 04/12/2010 2:06 AM PRODUCT GRADER 1 Resulting Agency Comment Performed By [facility] [address] [place] [phone] Cele Palacio MD LAB - HEMATOLOGY OR DERABLES Performing Organization Address [facility] Co de Phone Number [facility] [address] [place] [address] * SM ANTIBODY TY (04/09/2010 5:40 PM PRODUCT GRADER) Pathologist [facility] Ron (TY) Antibody 2.96 SEE BELOW EU [facility] Comment: <20 Negative 20-25 Borderline Positive >25 Positive Interpretation Autoimmune Antibody [facility] Comment: Borderline results have been retested. Activities Leader states that if results are still borderline, the test sample has no significant antibodies. BLOOD SPECIMEN / Unknown 04/09/2010 5:40 PM PRODUCT GRADER 04/09/2010 5:46 PM PRODUCT GRADER Narrative Resulting Agency Comment Performed By [facility] [address] [place] [address] Cele Palacio MD LAB - CHEMISTRY ORD ERABLES Performing Organization Address [facility] Co de Phone Number [facility] [address] [place] [address] * SURFACING TECHNICIAN ANTIBODY (04/09/2010 5:40 PM PRODUCT GRADER) Pathologist [facility] SURFACING TECHNICIAN Antibody 7.98 SEE BELOW EU [facility] Comment: <20 Negative 20-25 Borderline Positive >25 Positive Interpretation Autoimmune Antibody [facility] Comment: Borderline results have been retested. Activities Leader states that if results are still borderline, the test sample has no significant antibodies. BLOOD SPECIMEN / Unknown 04/09/2010 5:40 PM PRODUCT GRADER 04/09/2010 5:46 PM PRODUCT GRADER Narrative Resulting Agency Comment Performed By [facility] [address] [place] [address] Cele Palacio MD LAB - CHEMISTRY ORD ERABLES Performing Organization Address [facility] Co de Phone Number [facility] [address] [place] [address] * RHEUMATOID FACTOR BLOOD SCREEN (04/09/2010 5:40 PM PRODUCT GRADER) Rheumatoid Factor Negative Negative [facility] BLOOD SPECIMEN / Unknown 04/09/2010 5:40 PM PRODUCT GRADER 04/09/2010 5:47 PM PRODUCT GRADER Cele Palacio MD LAB - CHEMISTRY ORD ERABLES Performing Organization Address [facility] de Phone Number [facility] [address] [place] [address] * C-REACTIVE PROTEIN (04/09/2010 5:40 PM PRODUCT GRADER) C-Reactive Protein <0.5 <1.0 mg/dl mg/dl [facility] BLOOD SPECIMEN / Unknown 04/09/2010 5:40 PM PRODUCT GRADER 04/09/2010 5:47 PM PRODUCT GRADER Cele Palacio MD LAB - CHEMISTRY ORD ERABLES Performing Organization Address City/[facility] Co de Phone Number [facility] [address] [place] [address] * ABILIO BLOOD SCREEN (04/09/2010 5:40 PM PRODUCT GRADER) ABILIO Negative Negative [facility] BLOOD SPECIMEN / Unknown 04/09/2010 5:40 PM PRODUCT GRADER 04/09/2010 5:46 PM PRODUCT GRADER Narrative Resulting Agency Comment Performed By [facility] [address] [place] [address] Cele Palacio MD LAB - CHEMISTRY ORD ERABLES Performing Organization Address City/[facility] Co de Phone Number [facility] [address] [place] [address] * THYROID ANTIBODY PANEL (04/09/2010 5:40 PM PRODUCT GRADER) Thyroglobulin Antibody <0.9 0.0 - 4.0 IU/ml [facility] Thyroid Peroxidase TPO Antibody 1.5 0.0 - 9.0 IU/ml [facility] Comment Ref Lab [facility] Comment: TEST INFORMATION: Thyroglobulin Antibody A value of 4.0 IU/mL or less indicates a negative result for thyroglobulin antibodies. BLOOD SPECIMEN / Unknown 04/09/2010 5:40 PM PRODUCT GRADER 04/09/2010 5:47 PM PRODUCT GRADER Narrative [facility] - 04/12/2010 2:06 AM PRODUCT GRADER 1 Resulting Agency Comment Performed By [facility] [address] [place] [phone] Cele Palacio MD LAB - CHEMISTRY ORD ERABLES Performing Organization Address [facility] de Phone Number [facility] [address] [place] [address] * COMPLEMENT TOTAL (04/09/2010 5:40 PM PRODUCT GRADER) Pathologist [facility] Complement Total CH50 98 60 - 144 Units [facility] Comment Ref Lab [facility] Comment: REFERENCE INTERVAL: Complement Activity, Total EIA 59 Units or less .......... Low 60-144 Units .............. Normal 145 Units or greater ....... High BLOOD SPECIMEN / Unknown 04/09/2010 5:40 PM PRODUCT GRADER 04/09/2010 5:47 PM PRODUCT GRADER Narrative [facility] - 04/13/2010 9:33 AM PRODUCT GRADER 1 Resulting Agency Comment Performed By [employer] [place], [place] [phone] Cele Palacio MD LAB - CHEMISTRY ORD ERABLES Performing Organization Address [facility] Co de Phone Number [facility] [address] [place] [address] * BETA-2 GLYCOPROTEIN 1 ANTIBODY IGG/IGM PANEL (04/09/2010 5:40 PM PRODUCT GRADER) Beta-2 Glycoprotein Antibody IgG 1 0 - 20 SGU [facility] Beta-2 Glycoprotein Antibody IgM 2 0 - 20 SMU [facility] Comment Ref Lab [facility] Comment: TEST INFORMATION: Beta-2 Glycoprotein I Abs, IgG and IgM An IgG and/or IgM result of greater than 20 SGU and/or SMU on at least two occasions and at least 12 weeks apart is suggestive of antiphospholipid syndrome. Diagnosis should NOT be made solely on the basis of a single specimen. BLOOD SPECIMEN / Unknown 04/09/2010 5:40 PM PRODUCT GRADER 04/09/2010 5:47 PM PRODUCT GRADER Narrative [facility] - 04/12/2010 2:06 AM PRODUCT GRADER 1 Resulting Agency Comment Performed By [facility] [address] [place] [phone] Cele Palacio MD LAB - CHEMISTRY ORD ERABLES Performing Organization Address City/[facility] Co de Phone Number [facility] [address] [place] [address] * SS-B ANTIBODY (04/09/2010 5:40 PM PRODUCT GRADER) SS-B Antibody 9.83 SEE BELOW EU [facility] Comment: <20 Negative 20-25 Borderline Positive >25 Positive Interpretation Autoimmune Antibody [facility] Comment: Borderline results have been retested. Activities Leader states that if results are still borderline, the test sample has no significant antibodies. BLOOD SPECIMEN / Unknown 04/09/2010 5:40 PM PRODUCT GRADER 04/09/2010 5:46 PM PRODUCT GRADER Narrative Resulting Agency Comment Performed By [facility] [address] [place] [address] Cele Palacio MD LAB - CHEMISTRY ORD ERABLES Performing Organization Address City/[facility]/ZIP Co de Phone Number [facility] [address] [place] [address] * SS-A ANTIBODY (04/09/2010 5:40 PM PRODUCT GRADER) SS-A Antibody 5.55 SEE BELOW EU [facility] Comment: <20 Negative 20-25 Borderline Positive >25 Positive Interpretation Autoimmune Antibody [facility] Comment: Borderline results have been retested. Activities Leader states that if results are still borderline, the test sample has no significant antibodies. BLOOD SPECIMEN / Unknown 04/09/2010 5:40 PM PRODUCT GRADER 04/09/2010 5:46 PM PRODUCT GRADER Narrative Resulting Agency Comment Performed By [facility] [address] [place] [address] Cele Palacio MD LAB - CHEMISTRY ORD ERABLES Performing Organization Address [facility] de Phone Number [facility] [address] [place] [phone] * SCL70 ANTIBODY (04/09/2010 5:40 PM PRODUCT GRADER) SCL-70 Antibody 1.22 SEE BELOW [facility] Comment: <20 Negative 20-25 Borderline Positive >25 Positive Interpretation Autoimmune Antibody [facility] Comment: Borderline results have been retested. Activities Leader states that if results are still borderline, the test sample has no significant antibodies. BLOOD SPECIMEN / Unknown 04/09/2010 5:40 PM PRODUCT GRADER 04/09/2010 5:46 PM PRODUCT GRADER Narrative Resulting Agency Comment Performed By [facility] [address] [place] [address] Cele Palacio MD LAB - CHEMISTRY ORD ERABLES Performing Organization Address [facility] [facility] de Phone Number [facility] [address] [place] [phone] * DNA ANTIBODY DOUBLE STRAND (04/09/2010 5:40 PM PRODUCT GRADER) dsDNA Antibody 1.67 SEE BELOW IU [facility] Comment: <25 Negative 25-30 Borderline Positive 30-60 Low Positive 60-200 Positive >200 Strong Positive Comment dsDNA [facility] Comment: dsDNA antibodies are screened using an PARESH assay. Positive results are reflexed to titer by IFA. BLOOD SPECIMEN / Unknown 04/09/2010 5:40 PM PRODUCT GRADER 04/09/2010 5:46 PM PRODUCT GRADER Narrative Resulting Agency Comment Performed By [facility] [address] [place] [address] Cele Palacio MD LAB - HEMATOLOGY OR DERABLES Performing Organization Address [facility]/ZIP Co de Phone Number [facility] [address] [place] [address] * (ABNORMAL) VITAMIN D 25-HYDROXY (04/09/2010 5:40 PM PRODUCT GRADER) Pathologist [facility] Vitamin D, 25 Hydroxy 16.56(L) 30 - 100 ng/ml [facility] BLOOD SPECIMEN / Unknown 04/09/2010 5:40 PM PRODUCT GRADER 04/09/2010 5:47 PM PRODUCT GRADER Narrative Resulting Agency Comment Performed By [facility] [address] [place] [address] Cele Palacio MD LAB - CHEMISTRY ORD ERABLES Performing Organization Address [facility] Co de Phone Number [facility] [address] [place] [address] * MPO/[place] 3 AUTOANTIBODIES PANEL (04/09/2010 5:40 PM PRODUCT GRADER) Pathologist [facility] Myeloperoxidase Antibody 0 0 - 19 AU/mL [facility] Serine Protease 3 1 0 - 19 AU/mL [facility] Comment Ref Lab [facility] Comment: REFERENCE INTERVAL: Myeloperoxidase Abs, [...] BLOOD SPECIMEN / Unknown 04/09/2010 5:40 PM PRODUCT GRADER 04/09/2010 5:47 PM PRODUCT GRADER Narrative [facility] - 04/11/2010 11:18 PM PRODUCT GRADER 1 Resulting Agency Comment Performed By [facility] [address] [place] [id number] Cele Palacio MD LAB - CHEMISTRY ORD ERABLES Performing Organization Address City/[facility]/ZIP Co de Phone Number [facility] [address] [place] [address] * SED RATE WESTERGREN AUTO (04/09/2010 5:40 PM PRODUCT GRADER) Pathologist [facility] Erythrocyte Sedimentation Rate Westergren 12 0 - 13 mm/Hr [facility] BLOOD SPECIMEN / Unknown 04/09/2010 5:40 PM PRODUCT GRADER 04/09/2010 5:47 PM PRODUCT GRADER Cele Palacio MD LAB - HEMATOLOGY OR DERABLES Performing Organization Address [facility] Co de Phone Number [facility] [address] [place] [address] * COMPLEMENT C4 (04/09/2010 5:40 PM PRODUCT GRADER) Pathologist [facility] Complement C4 25 12 - 36 mg/dl [facility] BLOOD SPECIMEN / Unknown 04/09/2010 5:40 PM PRODUCT GRADER 04/09/2010 5:47 PM PRODUCT GRADER Cele Palacio MD LAB - SEROLOGY ORDE RABLES Performing Organization Address [facility] Co de Phone Number [facility] [address] [place] [address] * CK BLOOD (04/09/2010 5:40 PM PRODUCT GRADER) Pathologist [facility] CK 58 50 - 295 Units/L [facility] BLOOD SPECIMEN / Unknown 04/09/2010 5:40 PM PRODUCT GRADER 04/09/2010 5:47 PM PRODUCT GRADER Cele Palacio MD LAB - CHEMISTRY ORD ERABLES Performing Organization Address [facility] Co de Phone Number [facility] [address] [place] [address] * TSH (04/09/2010 5:40 PM PRODUCT GRADER) Pathologist [facility] TSH 2.644 0.490 - 4.670 mcIU/mL [facility] BLOOD SPECIMEN / Unknown 04/09/2010 5:40 PM PRODUCT GRADER 04/09/2010 5:47 PM PRODUCT GRADER Cele Palacio MD LAB - CHEMISTRY ORD ERABLES Performing Organization Address [facility] Co de Phone Number [facility] [address] [place] [address] * COMPLEMENT C3 (04/09/2010 5:40 PM PRODUCT GRADER) Complement C3 144 85 - 193 mg/dl [facility] BLOOD SPECIMEN / Unknown 04/09/2010 5:40 PM PRODUCT GRADER 04/09/2010 5:47 PM PRODUCT GRADER Cele Palacio MD LAB - CHEMISTRY ORD ERABLES Performing Organization Address [facility] de Phone Number [facility] [address] [place] [address] Care Teams Supervisor Powder And Primer Canning Relationship Specialty Start Date End Date Wily Cedeno MD [address] [place] [phone] PCP - General 09/03/21
--- OUTSIDE RECORDS SUMMARY | 2024-07-22 12:59 | XMS_ITS | Clinical Summary ---
Author Organization [facility] Address [address] [facility] [place] [address] Care Team Providers Care Client Technologies Specialist Name Role Phone Wily Cedeno MD Primary Care Provider [phone] Source Comments [facility],non-owned Affiliates and Associated Physician Practices is amultiple site organization consisting of ambulatory clinics and hospital sitesin [place], [place], [place] and [place]. This disclosure is being madepursuant to the Care Everywhere program and may not contain all information available regarding this patient. Last updated 18.[facility] Eli Nutrition Allergies Active Allergy Reactions Criticality Noted Date [...] age to complete this topic Care Teams Client Technologies Specialist Relationship Specialty Start Date End Date Wily Cedeno MD [address] [facility] [address] [place] [address] PCP - General 09/03/21
--- OUTSIDE RECORDS SUMMARY | 2024-07-22 12:59 | XMS_ITS | Referral Summary ---
Author Organization [facility] Address [address] [place] [phone] Care Team Providers Care Chemical Supervisor Name Role Phone Wily Cedeno MD Primary Care Provider [phone] Allergies Active Allergy Reactions Criticality Noted Date Comments Hydromorphone Itching Low 06/17/2017 Medications vit D3-vit R-jayoktisb-twq s [phone] akmm-teg-wq-mg tablet Take by mouth Active albuterol HFA [...] frequency over the past year. Positive sonographic Hna's sign at OSH. 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 Gender Identity Not on file Sexual Orientation Not on file Occupation Industry Job Start Date Job End Date N/A Not on file Not on file Not on file Last Filed Vital Signs Vital Sign Reading Time Taken Comments Blood Pressure 130/91 04/21/2021 10:44 PM FURNITURE MAKER Pulse 100 04/21/2021 10:43 PM FURNITURE MAKER Temperature 36.7 C (98.1 F) 04/21/2021 10:43 PM FURNITURE MAKER Respiratory Rate 18 04/21/2021 10:43 PM FURNITURE MAKER Oxygen Saturation 100% 04/21/2021 10:43 PM FURNITURE MAKER Inhaled Oxygen Concentration - - Weight 87.5 kg (193 lb) 08/07/2020 9:08 AM CDT Height 172.7 cm (5' 8 ) 08/07/2020 9:08 AM CDT Body Mass Index 29.35 08/07/2020 9:08 AM CDT Plan of Treatment Not on file Insurance [facility] [employer] OPEN ACCESS Care Teams Chemical Supervisor Relationship Specialty Start Date End Date Wily Cedeno MD [address] [place] [address] DR [address] B [facility] [address] [place] [address] PCP - General Family Medicine 06/18/22
--- OUTSIDE RECORDS SUMMARY | 2024-07-22 12:59 | XMS_ITS | Referral Summary ---
Author Organization [facility] Address [address] [facility] [place] [address] Care Team Providers Care Catalogue Illustrator Name Role Phone Wily Cedeno MD Primary Care Provider [phone] Source Comments [facility],non-owned Affiliates and Associated Physician Practices is amultiple site organization consisting of ambulatory clinics and hospital sitesin [place], [place], [place] and [place]. This disclosure is being madepursuant to the Care Everywhere program and may not contain all information available regarding this patient. Last updated 18.[facility] Food Reporter Allergies Active Allergy Reactions Criticality Noted Date [...] of Treatment Not on file Care Teams Catalogue Illustrator Relationship Specialty Start Date End Date Wily Cedeno MD [address] [facility] [place] [address] PCP - General 09/03/21
[2024-07-22 13:57] VITALS: BP 130/74; PULSE 78; RESP 18; O2SAT 100
== END 2024-07-22 13:57 | disposition home or self-care (01) ==
PROVIDERS: Emergency Provider Emergency Medicine
DX: N39.0 Urinary tract infection, site not specified (principal)
CPT/HCPCS: 36415; 80053; 81001; 81025; 84702; 85025; 87086; 99283

== ENCOUNTER 2024-12-10 13:44 | Emergency (ER) | payer MEDICAID, SELFPAY ==
--- NOTE | ~2024-12-10 | US_ITS ---
EXAMINATION: US OB <=14 wk fetus w TV DATE: 12/10/2024 16:09 INDICATION: Vaginal bleeding during 19th week of TECHNIQUE: Real-time pelvic ultrasound utilizing both a transvaginal and transabdominal probe was pe rformed. The interpreting radiologist was not present for the study. COMPARISON: None. FINDINGS: The uterus measures 10.3 x 4.5 x 6.3 cm. There is an intrauterine gestational sac. A yolk sac and fe hugo pole are identified. The crown rump length measures 1.3 cm, which correlates with an estimated ge stational age of 7 weeks and 3 days. heart motion is identified measuring 157 beats per minute (bpm) by M-mode Doppler. 2.7 x 2.2 x 2.2 cm hypoechoic fibroid at the posterior body of the uterus. The right ovary measures 4.6 x 3.2 x 2.6 cm. 2.0 x 1.5 x 1.1 cm centrally anechoic, peripherally hypo echoic thick-walled likely corpus luteum cyst in the right ovary. The left ovary measures 3.2 x 2.0 x 2.8 cm. 1.7 cm anechoic left ovarian cyst/follicle. Vascular flow identified in both ovaries on colo r Doppler. There is no free fluid in the pelvis. IMPRESSION: 1. Single living fetus with heart rate of 157 bpm. 2. Gestational age by ultrasound of 7 weeks 3 day(s) +/- 4 day(s) with ultrasound estimated date of delivery (ROSANNE) of 07/26/2025. 3. 2.7 cm uterine fibroid at the posterior body of the uterus. Reviewed, dictated and finalized at location A. IMPRESSION: 1. Single living fetus with heart rate of 157 bpm. 2. Gestational age by ultrasound of 7 weeks 3 day(s) +/- 4 day(s) with ultraso und estimated date of delivery (ROSANNE) of 07/26/2025. 3. 2.7 cm uterine fibroid at the posterior body of the uterus.
--- OUTSIDE RECORDS SUMMARY | 2024-12-10 13:47 | XMS_ITS | Clinical Summary ---
Author Organization [facility] Address [address] [place] [address] Phone Care Team Providers Care Campaign Marketing Manager Name Role Phone Wily Cedeno MD Primary Care Provider [phone] Allergies Active Allergy Reactions Criticality Noted Date [...] g 0 6 Active Norgestim-Eth Estrad Triphasic (MCY-GC-YGUUFZK C PO) Take by mouth. Activ e [...] Comments Blood Pressure 143/99 04/06/2024 8:18 PM DIRECTOR OF MANUFACTURING OPERATIONS Pulse 84 04/06/2024 8:18 PM DIRECTOR OF MANUFACTURING OPERATIONS Temperature 35.9 C (96.6 F) 04/06/2024 8:18 PM DIRECTOR OF MANUFACTURING OPERATIONS Respiratory Rate 18 04/06/2024 8:18 PM DIRECTOR OF MANUFACTURING OPERATIONS Oxygen Saturation 97% 04/06/2024 8:18 PM DIRECTOR OF MANUFACTURING OPERATIONS Inhaled Oxygen Concentration - - Weight 106.1 kg (234 lb) 04/06/2024 8:18 PM DIRECTOR OF MANUFACTURING OPERATIONS Height 175.3 cm (5' 9) 04/06/2024 8:18 PM DIRECTOR OF MANUFACTURING OPERATIONS Body Mass Index 34.56 04/06/2024 8:18 PM DIRECTOR OF MANUFACTURING OPERATIONS Plan of Treatment Health Maintenance Due Date Last Done Comments Hepatitis C Virus (HCV) Screening 1996 Pap Smear 2017 SARS-COV-2 Immunization ( season) 2024 Influenza Immunization (#1) 2025 10/08/2023 Respiratory Syncytial Virus (RSV) Immunization (Adult) (1 - 1-dose 75+ series) 11/28/2071 Hepatitis B Immunization Completed 998, 1996, 1996 Human Papillomavirus (HPV) Immunization Completed 12/25/2010, 08/28/2009, 11/28/2006 Meningococcal Immunization (ACWY) Completed [...] measures to stabilize the patient. Care Teams Campaign Marketing Manager Relationship Specialty Start Date End Date Wily Cedeno MD [address] [place] [address] [facility] [address] [place] [address] PCP - General Family Medicine 04/06/24
--- OUTSIDE RECORDS SUMMARY | 2024-12-10 13:47 | XMS_ITS | Clinical Summary ---
Author Organization [facility] Address [address] [place] [address] Care Team Providers Care Manual Arts Therapist Name Role Phone Wily Cedeno MD Primary Care Provider [phone] Source Comments [facility],non-owned Affiliates and Associated Physician Practices is amultiple site organization consisting of ambulatory clinics and hospital sitesin [place], [place], [place] and [place]. This disclosure is being madepursuant to the Care Everywhere program and may not contain all information available regarding this patient. Last updated 18.[facility] Cree Allergies Active Allergy Reactions Criticality Noted Date Comments Hydromorphone Itching 12/09/2011 Medications * Be aware that medications may not be up to date on this document. Alwaysverify current medications with the patient. FIBER PO Take 1 Tab by mouth 3 times daily. Active lansoprazole (PREVACID) 30 MG capsule Take 1 Cap by mouth 2 times daily,before breakfast and supper. 60 Cap 5 4 Active polyethylene glycol 3350 (MIRALAX) powder Take 8.5 g by mouth once daily. 500 g 5 4 Active Active Problems Problem Noted Date [...] of common bile duct. In consideration of aMria L's US findings + elevated transaminases on [...] at Not on file Legal Sex Female 5:41 AM STUNT PERSON Gender Identity Not on file Sexual Orientation [...] 4:11 PM CDT Height 166.5 cm (5' 5.55) 03/03/2014 4:11 PM CD T Body Mass Index 26.8 03/03/2014 4:11 PM CDT Plan of Treatment Health Maintenance Due Date Last Done Comments HIV SCREENING 11/28/2011 HEPATITIS C SCREENING 11/23/2014 DTAP/TDAP/TD VACCINES (1 - Tdap) 11/28/2015 HEPATITIS B VACCINE (1 of 3 - 19+ 3-dose series) 11/28/2015 HPV VACCINE (1 - 3-dose SCDM series) 11/28/2023 COVID-19 VACCINE (1 - 2023-2 5 season) 2024 DEPRESSION SCREENING 05/12/2024 INFLUENZA VACCINE (#1) 2025 ZOSTER VACCINE (1 of 2) 2046 HIB [...] on patient's age to complete this topic Insurance [facility] [place] [facility] Care Teams Manual Arts Therapist Relationship Specialty Start Date End Date Wily Cedeno MD [address] [phone] PCP - General 09/03/21
--- OUTSIDE RECORDS SUMMARY | 2024-12-10 13:47 | XMS_ITS | Continuity of Care Document ---
Author Organization [facility] Address [address] [place] [address] Phone Care Team Providers Care Fiberglass Quality Technician Name Role Phone Management, Case Unavailable Unavailable Medications Medication Instructions Dosage Effective Dates (start - stop) Status Comments Formula 28 mg iron-800 mcg tablet take 1 tablet by oral route every day 1 tablet - Active Procedures Procedure Date OFFICE O/P EST 5 MIN URINE TEST, BY VISUAL COLOR CO MPARISON METHODS Advance Directives Directive Yes / No Effective Date File Name No Information Encounters Encounter Description Practice Location Reason(s) For Visit Diagnoses Date Provider Providers Copied on Encounter [facility], [address], [place], [place], [id number] , tel:[phone] [facility] No Information Management Case. [address], [place], [place], [id number], [place]. tel:[phone] OFFICE O/P EST 5 MIN [facility], [address], [place], [place], [id number] , tel: [phone] [facility] [place] Nurse Visit- Urine PT (chief complaint) Encounter for test, result positiveEncounter for test, result unknown Nurse Registered. [address], [place], [place], [id number], [place]. tel:[phone] Family History Family Member Type Diagnosis Age At Onset No Information Payers Payer name Insurance type Covered libertarian ID Authoriza tion(s) No Information Social History Type Description Quantity Date Captured Comments Sex Female Smoking Status No Information Chief Complaint And Reason For Visit No Information Reason For Referral Reason For Referral No Information History Of Present Illness Encounter Date Complaint History Of Prese nt Illness Nurse Visit- Urine PT 28 y/o fem akhil presented as walk-in requesting a urine PT be done; results positive; patient congratulated & informed of positive results; VS taken & recorded; patient informed her information will be forwarded to [facility] & they will call and schedule her next appointments which include PNI, US, IOB, & WIC referral; address & phone number verified; pharmacy added to profile; script for PNV sent to pharmacy on file; patient verbalized understanding of information given Functional Status Date Functional Assessmen t No Information Instructions Date Instruction Additional Infor mation No Information Assessments Type Assessment Date No Information Patient Care Teams Name Effective Dates (start - stop) Status Members No Information
--- OUTSIDE RECORDS SUMMARY | 2024-12-10 13:47 | XMS_ITS | Clinical Summary ---
Author Organization [facility] Address [address] [place] [phone] Care Team Providers Care Welding Rod Coater Name Role Phone Wily Cedeno MD Primary Care Provider [phone] Allergies Active Allergy Reactions Criticality Noted Date Comments Hydromorphone Itching Low 06/17/2017 Medications vit D3-vit S-ibgpjniyn-nnl s [id number] ilwq-wwe-xi-mg tablet Take by mouth Active albuterol HFA [...] surgery consult - continue NPO status with MTVF - continue IV antibiotics- Unasyn (ampicillin-sulbactam) for [...] on file Legal Sex Female 3:12 PM OFFICE INSPECTOR Gender Identity Not on file Sexual Orientation [...] Comments Blood Pressure 130/91 04/21/2021 10:44 PM OFFICE INSPECTOR Pulse 100 04/21/2021 10:43 PM OFFICE INSPECTOR Temperature 36.7 C (98.1 F) 04/21/2021 10:43 PM OFFICE INSPECTOR Respiratory Rate 18 04/21/2021 10:43 PM OFFICE INSPECTOR Oxygen Saturation 100% 04/21/2021 10:43 PM OFFICE INSPECTOR Inhaled Oxygen Concentration - - Weight 87.5 kg (193 lb) 08/07/2020 9:08 AM CDT Height 172.7 cm (5' 8) 08/07/2020 9:08 AM CDT Body Mass Index 29.35 08/07/2020 9:08 AM CDT Plan of Treatment Health Maintenance Due Date Last Done Comments Cervical Cancer Screening 1996 Depression Screening 1996 Hepatitis C Screening 1996 Regular Well Visit/Exam 18-64 2014 Pneumococcal vaccine <65 (1 of 2 - PCV) 11/28/2015 Influenza Vaccine (#1) 2025 10/08/2023 DTaP/Tdap/Td Vaccine (8 - Td or Tdap) 10/07/2033 10/08/2023, 11/28/2006, 01/22/2002, Additional history exists Hepatitis B Screening Completed 10/10/1997 , 1996, 1996 Varicella Vaccines Completed 11/28/2006, 12/08/1997 HPV Vaccines Completed 12/25/2010, 08/10, 11/28/2006 Insurance [facility] [employer] OPEN ACCESS Care Teams Welding Rod Coater Relationship Specialty Start Date End Date Wily Cedeno MD [address] [place] [address] [address] [address] PCP - General Family Medicine 06/18/22
--- OUTSIDE RECORDS SUMMARY | 2024-12-10 13:47 | XMS_ITS | Referral Summary ---
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 Gender Identity Not on file Sexual Orientation Not on file Occupation Industry Job Start Date Job End Date N/A Not on file Not on file Not on file Last Filed Vital Signs Vital Sign Reading Time Taken Comments Blood Pressure 130/91 04/21/2021 10:44 PM SOLDER DEPOSIT OPERATOR Pulse 100 04/21/2021 10:43 PM SOLDER DEPOSIT OPERATOR Temperature 36.7 C (98.1 F) 04/21/2021 10:43 PM SOLDER DEPOSIT OPERATOR Respiratory Rate 18 04/21/2021 10:43 PM SOLDER DEPOSIT OPERATOR Oxygen Saturation 100% 04/21/2021 10:43 PM SOLDER DEPOSIT OPERATOR Inhaled Oxygen Concentration - - Weight 87.5 kg (193 lb) 08/07/2020 9:08 AM CDT Height 172.7 cm (5' 8) 08/07/2020 9:08 AM CDT Body Mass Index 29.35 08/07/2020 9:08 AM CDT Plan of Treatment Not on file Insurance [facility] [employer] OPEN ACCESS Care Teams Inserting Operator Relationship Specialty Start Date End Date Wily Cedeno MD [address] [facility] [address] [address] PCP - General Family Medicine 06/18/22
[2024-12-10 14:06] VITALS: BP 134/83; PULSE 95; RESP 16; TEMP 36.4; O2SAT 99
--- OUTSIDE RECORDS SUMMARY | 2024-12-10 14:43 | XMS_ITS | Clinical Summary ---
Author Organization [facility] Address [address] [facility] [place] [place] [address] Care Team Providers Care Land Mobile Radio Technician Name Role Phone Wily Cedeno MD Primary Care Provider [phone] Source Comments [facility],non-owned Affiliates and Associated Physician Practices is amultiple site organization consisting of ambulatory clinics and hospital sitesin [place], [place], [place] and [place]. This disclosure is being madepursuant to the Care Everywhere program and may not contain all information available regarding this patient. Last updated 18.[facility] Allergies Active Allergy Reactions Criticality Noted Date [...] on file Legal Sex Female 5:41 AM DISTRIBUTION DISTRICT SUPERVISOR Gender Identity Not on file Sexual Orientation [...] patient's age to complete this topic Insurance [facility] [place] [facility] Care Teams Land Mobile Radio Technician Relationship Specialty Start Date End Date Wily Cedeno MD [address] [phone] PCP - General 09/03/21
--- OUTSIDE RECORDS SUMMARY | 2024-12-10 14:43 | XMS_ITS | Continuity of Care Document ---
Author Organization [facility] Address [address] [place] [address] Phone Care Team Providers Care Boat Outfitter Name Role Phone Management, Case Unavailable Unavailable [...] Encounter [facility], [address], [place], [place], [id number] , tel:[phone] [facility] [place] No Information Management Case. [address], [place], [place], [address], [place]. tel:[phone] OFFICE O/P EST 5 MIN [facility], [address], [place], [place], [id number] , tel: [phone] [facility] [place] Nurse Visit- Urine PT (chief complaint) Encounter for test, result positiveEncounter for test, result unknown Nurse Registered. [address], [place], [place], [id number], [place]. tel:[phone] Family History Family Member Type Diagnosis Age At Onset No Information Payers Payer name Insurance type Covered green party ID Authoriza tion(s) No Information Social History [...]
--- OUTSIDE RECORDS SUMMARY | 2024-12-10 14:43 | XMS_ITS | Clinical Summary ---
Author Organization [facility] Address [address] [place] [address] Care Team Providers Care Electronic Instrument Trades Worker Name Role Phone Wily Cedeno MD Primary Care Provider [phone] Allergies Active Allergy Reactions Criticality Noted Date Comments Hydromorphone Itching Low 06/17/2017 Medications vit D3-vit Q-wvthfmzzk-kkh s [phone] vifd-hja-lg-mg tablet Take by mouth Active albuterol HFA [...] surgery consult - continue NPO status with MAVF - continue IV antibiotics- Unasyn (ampicillin-sulbactam) for [...] on file Legal Sex Female 3:12 PM ASSEMBLER WATCH TRAIN Gender Identity Not on file Sexual Orientation [...] Comments Blood Pressure 130/91 04/21/2021 10:44 PM ASSEMBLER WATCH TRAIN Pulse 100 04/21/2021 10:43 PM ASSEMBLER WATCH TRAIN Temperature 36.7 C (98.1 F) 04/21/2021 10:43 PM ASSEMBLER WATCH TRAIN Respiratory Rate 18 04/21/2021 10:43 PM ASSEMBLER WATCH TRAIN Oxygen Saturation 100% 04/21/2021 10:43 PM ASSEMBLER WATCH TRAIN Inhaled Oxygen Concentration - - Weight 87.5 [...] HPV Vaccines Completed 12/25/2010, 08/10, 11/28/2006 Insurance [facility] [employer] OPEN ACCESS Care Teams Electronic Instrument Trades Worker Relationship Specialty Start Date End Date Wily Cedeno MD [address] [place] [address] [address] [address] PCP - General Family Medicine 06/18/22
--- OUTSIDE RECORDS SUMMARY | 2024-12-10 14:43 | XMS_ITS | Clinical Summary ---
Author Organization [facility] Address [address] [place] [address] Phone Care Team Providers Care Pressfitter Name Role Phone Wily Cedeno MD Primary Care Provider [phone] Allergies Active Allergy Reactions Criticality Noted Date [...] g 0 6 Active Norgestim-Eth Estrad Triphasic (NZZ-[id number] C PO) Take by mouth. Activ e [...] Comments Blood Pressure 143/99 04/06/2024 8:18 PM SOLDERER Pulse 84 04/06/2024 8:18 PM SOLDERER Temperature 35.9 C (96.6 F) 04/06/2024 8:18 PM SOLDERER Respiratory Rate 18 04/06/2024 8:18 PM SOLDERER Oxygen Saturation 97% 04/06/2024 8:18 PM SOLDERER Inhaled Oxygen Concentration - - Weight 106.1 kg (234 lb) 04/06/2024 8:18 PM SOLDERER Height 175.3 cm (5' 9) 04/06/2024 8:18 PM SOLDERER Body Mass Index 34.56 04/06/2024 8:18 PM SOLDERER Plan of Treatment Health Maintenance Due Date [...] measures to stabilize the patient. Care Teams Pressfitter Relationship Specialty Start Date End Date Wily Cedeno MD [address] [place] [address] [facility] [address] [place] [address] PCP - General Family Medicine 04/06/24
--- OUTSIDE RECORDS SUMMARY | 2024-12-10 14:43 | XMS_ITS | Referral Summary ---
Author Organization [facility] Address [address] [place] [id number] Care Team Providers Care Towel Weaver Name Role Phone Wily Cedeno MD Primary Care Provider [phone] Allergies Active Allergy Reactions Criticality Noted Date Comments Hydromorphone Itching Low 06/17/2017 Medications vit D3-vit [id number] s [id number] amyr-enk-dk-mg tablet Take by mouth Active albuterol HFA [...] on file Legal Sex Female 3:12 PM ELECTRIC OPERATOR Gender Identity Not on file Sexual Orientation Not on file Occupation Industry Job Start Date Job End Date N/A Not on file Not on file Not on file Last Filed Vital Signs Vital Sign Reading Time Taken Comments Blood Pressure 130/91 04/21/2021 10:44 PM ELECTRIC OPERATOR Pulse 100 04/21/2021 10:43 PM ELECTRIC OPERATOR Temperature 36.7 C (98.1 F) 04/21/2021 10:43 PM ELECTRIC OPERATOR Respiratory Rate 18 04/21/2021 10:43 PM ELECTRIC OPERATOR Oxygen Saturation 100% 04/21/2021 10:43 PM ELECTRIC OPERATOR Inhaled Oxygen Concentration - - Weight 87.5 kg (193 lb) 08/07/2020 9:08 AM CDT Height 172.7 cm (5' 8) 08/07/2020 9:08 AM CDT Body Mass Index 29.35 08/07/2020 9:08 AM CDT Plan of Treatment Not on file Insurance [facility] [employer] OPEN ACCESS Care Teams Towel Weaver Relationship Specialty Start Date End Date Wily Cedeno MD [address] [facility] [address] [place] [address] [address] PCP - General Family Medicine 06/18/22
[2024-12-10 15:05] LABS: Hematocrit 39.9 % (37.0-47.0); Hemoglobin 12.8 g/dL (12.0-15.0); Immature Granulocyte Percent A 0.5 % (0-0.5); Lymphocytes Absolute Auto 2.70 K/mm3 (0.9-3.2); Mean Corpuscular HGB Conc 32.1 g/dl (32-36); Mean Corpuscular Hemoglobin 26.9 pg (26-34); Mean Corpuscular Volume 83.8 fl (80-100); Nucleated Red Blood Cells Absolute Auto 0.000 K/mm3 (0.0-0.012); Nucleated Red Blood Cells Perc 0.0 % (0.0-0.2); Platelet Count Result 335 k/mm3 (150-375); Red Blood Count 4.76 M/mm3 (4.2-5.4); White Blood Count 12.3 K/mm3 (4.5-10.0)
--- NOTE | 2024-12-10 15:10 | ED_ITS ---
HPI - General Chief complaint: Vaginal Bleeding Stated complaint: abd cramping, 9 weeks , vag bleed Time Seen by Provider: 12/10/24 14:05 History of Present Illness HPI Narrative: Patient is a 29-year-old [place] female presents to the ER with complaints of gas and abdominal cramping during . She reports she is approximately 9 weeks and her last menstrual period was October 01, 2024. Patient reports this is her 1st . She has been experiencing nausea but denies vomiting. Patient also reports she has had some ?brown spotting lately. She endorses recent urinary urgency, but denies any burning with urination. Patient endorses a history of herpes 1 and 2, atrial fibrillation, depression, and anxiety. She denies any acute back pain, recent fevers, or lower extremity swelling. Related Data Allergies Allergy/AdvReac Type Severity Reaction Status Date / Time hydromorphone Allergy hives Verified 07/22/24 10:03 Review of Systems 2 Review of Systems: All systems reviewed & are unremarkable except as noted in HPI and below Exam 2 Narrative: GENERAL: Well appearing, obese, non-toxic, in no acute distress. HEAD: Normocephalic, atraumatic. NECK: Supple. No adenopathy, no masses. RESPIRATORY: Airway patent, respirations nonlabored. Clear to auscultation bilaterally, no rales, rhonchi, wheezing. CARDIOVASCULAR: Regular rate and rhythm without murmurs, rubs, or gallops. Peripheral pulses 2+ and equal bilaterally. ABDOMINAL: Soft, nontender, nondistended, no hepatosplenomegaly. Normoactive BS. MUSCULOSKELETAL: Moves all extremities. Strength/ROM intact without gross deformities. SKIN: Warm, dry, normal color. No rashes. NEURO: A&O X3. Speech clear. Cranial nerves II-XII intact. No ataxic movements. PSYCHIATRIC: Appropriate mood and affect. Normal interaction. : Patient declines vaginal exam Course Vital Signs Vital signs: Vital Signs Temperature 36.4 C 12/10/24 14:06 Pulse Rate 95 12/10/24 14:06 Respiratory Rate 16 12/10/24 14:06 Blood Pressure 134/83 12/10/24 14:06 Pulse Oximetry 99 12/10/24 14:06 Temperature 36.9 C 12/10/24 17:29 Pulse Rate 78 12/10/24 17:29 Respiratory Rate 16 12/10/24 17:29 Blood Pressure 122/76 12/10/24 17:29 Pulse Oximetry 100 12/10/24 17:29 MDM - OB/Uterine Contractions MDM Narrative Medical decision making narrative: Patient is a 29-year-old [place] female presents to the ER with complaints of gas and abdominal cramping during . She reports she is approximately 9 weeks and her last menstrual period was October 01, 2024. Patient reports this is her 1st . She has been experiencing nausea but denies vomiting. Patient also reports she has had some ?brown spotting lately. She endorses recent urinary urgency, but denies any burning with urination. Patient endorses a history of herpes 1 and 2, atrial fibrillation, depression, and anxiety. She denies any acute back pain, recent fevers, or lower extremity swelling. Labs Ordered: CBC, CMP, INR, PTT, UA, Rh immunoglobulin, beta hCG Imaging Ordered: Ultrasound OB Medications Ordered: 1 L normal saline IV bolus Results: Patient's ultrasound indicates 1. Single living fetus with heart rate of 157 bpm. 2. Gestational age by ultrasound of 7 weeks 3 day(s) +/- 4 day(s) with ultrasound estimated date of delivery (ROSANNE) of 07/26/2025. 3. 2.7 cm uterine fibroid at the posterior body of the uterus. Patient's CBC indicates a white blood cell count of 12.3. Her CMP indicates a sodium of 135, carbon dioxide 21, creatinine is 0.61. Patient's beta hCG is 59,975. Her urinalysis indicates trace leukocytes. Diagnosis: Uterine Fibroid during , urinary tract infection Consults: OBGYN (outpatient), pt sees Dr. Silveira ([facility]). She has an appointment set up for Friday, in three days. Patient Education/Shared MDM: Results of lab work and imaging shared with patient and her significant other. She will be given her 1st dose of antibiotic here in the ER. Patient had trace leukocytes in her urinalysis so she will be treated with antibiotics to ensure this is not contributing to her symptoms. Patient strongly advised to maintain hydration status upon discharge and follow- up with her OBGYN as planned. She will be discharged home with a prescription for Keflex. Strict return precautions provided. Patient verbalized understanding and is in agreement with plan. Vital signs stable at time of discharge. All questions answered. Differential Diagnosis Differential diagnosis: Likely other (Threatened , UTI, uterine fibroid, subchorionic hemorrhage) Lab Data Attestation: I reviewed the patient's lab results. 12/10/24 14:52 12/10/24 14:52 Labs: Lab Results 12/10/24 12/10/24 Range/Units 14:52 17:38 WBC 12.3 H (4.5-10.0) K/mm3 RBC 4.76 (4.2-5.4) M/mm3 Hgb 12.8 (12.0-15.0) g/dL Hct 39.9 (37.0-47.0) % MCV 83.8 (80-100) fl MCH 26.9 (26-34) pg MCHC 32.1 (32-36) g/dl RDW 14.1 (11.5-14.5) % Plt Count 335 (150-375) k/mm3 MPV 9.6 (7.4-10.4) fl Immature Gran % (Auto) 0.5 (0-0.5) % Neut % (Auto) 70.4 (45.5-73.1) % Lymph % (Auto) 22.0 (18.3-44.2) % [place] % (Auto) 4.2 (2.6-8.5) % Eos % (Auto) 2.6 (0-4.4) % Baso % (Auto) 0.3 (0.2-1.2) % Lymph # (Auto) 2.70 (0.9-3.2) K/mm3 [place] # (Auto) 0.5 (0.1-0.6) K/mm3 Eos # (Auto) 0.3 (0-0.3) K/mm3 Baso # (Auto) 0.0 (0.0-0.1) K/mm3 Abs Immat Gran (auto) 0.06 H (0.00-0.031) K/mm3 Absolute Neuts (auto) 8.7 H (1.3-6.7) K/mm3 Absolute Nucleated RBC 0.000 (0.0-0.012) K/mm3 Nucleated RBC % 0.0 (0.0-0.2) % PT 14.0 (11.1-14.7) Seconds INR 1.1 APTT 27.3 (22.3-36.8) Seconds Sodium 135 L (137-145) mmol/L Potassium 3.6 (3.4-5.0) mmol/L Chloride 104 (98-107) mmol/L Carbon Dioxide 21 L (22-30) mmol/L Anion Gap 10 (4-12) mmol/L BUN 7 (7-17) mg/dL Creatinine 0.61 L (0.7-1.0) mg/dL Estim Creat Clear Calc Not Reportable Estimated GFR > 60 (59 - ) Glucose 107 (65-110) mg/dL Calcium 9.3 (8.4-10.2) mg/dL Total Bilirubin 0.5 (0.2-1.3) mg/dL AST 35 (14-36) U/L ALT 32 (6-35) U/L Alkaline Phosphatase 61 (38-126) U/L Total Protein 7.7 (6.3-8.2) g/dL Albumin 4.1 (3.5-5.1) g/dL Beta HCG, Quant 93743.00 mIU/ML Urine Color Yellow (Yellow) Urine Appearance Clear (Clear) Urine pH 6.5 (5.0-9.0) Ur Specific [place] 1.015 (1.001-1.035) Urine Protein Negative (Negative) mg/dL Urine Glucose (UA) Negative (Negative) mg/dL Urine Ketones Negative (Negative) mg/dL Ur Blood (Man) Negative (Negative) Urine Nitrate Negative (Negative) Urine Bilirubin Negative (Negative) Urine Urobilinogen 0.2 (<2.0) mg/dL Leukocyte Esterase Rfl Trace H (Negative) HORTENCIA/UL Urine RBC 0-2 (0-2) /hpf Urine WBC 0-5 (0-3) /hpf Ur Squamous Epith Cells None seen (Few) /hpf Urine Bacteria Rare /hpf Urine Casts 0-2 Blood Type A Positive Antibody Screen Negative Screen TNP Baby's Blood Type TNP Baby's ELSA TNP Doses of RhIg Required 0 Imaging Data Attestation: I personally reviewed and interpreted this imaging study as follows: Radiologist's impression: Impressions Obstetrics Ultrasound 12/10/24 16:20 IMPRESSION: 1. Single living fetus with heart rate of 157 bpm. 2. Gestational age by ultrasound of 7 weeks 3 day(s) +/- 4 day(s) with ultrasound estimated date of delivery (ROSANNE) of 07/26/2025. 3. 2.7 cm uterine fibroid at the posterior body of the uterus. Discharge Plan Discharge Clinical Impression: Threatened , Vaginal bleeding, Fibroid, uterine Patient Disposition: Home Condition: Stable Instructions: Antibiotic Form Additional Instructions: Please return to the ER with any worsening symptoms. Follow-up with your OBGYN on Friday, as planned. Take all medications as prescribed, including regularly scheduled medications. Complete your full dose of antibiotics. Remember to drink lots of water. Patient Language: [place] Islander Prescriptions: New cephalexin 500 mg capsule 500 mg PO Q8H 7 Days Qty: 21 0RF No Action nitrofurantoin monohyd/m-cryst [Macrobid] 100 mg capsule 100 mg PO Q12H 5 Days Qty: 10 0RF Rx Instructions: must administer with a meal/food Follow-up/Referrals: Wilian,Wily Stiles MD [Primary Care Provider] - Time of Disposition: 18:35
[2024-12-10 15:18] LABS: INR 1.1; Partial Thromboplastin Time 27.3 Seconds (22.3-36.8); Prothrombin Time 14.0 Seconds (11.1-14.7)
[2024-12-10 15:33] LABS: Alanine Aminotransferase 32 U/L (6-35); Albumin Level 4.1 g/dL (3.5-5.1); Alkaline Phosphatase 61 U/L (38-126); Anion Gap 10 mmol/L (4-12); Aspartate Amino Transferase 35 U/L (14-36); Bilirubin,Total 0.5 mg/dL (0.2-1.3); Blood Urea Nitrogen 7 mg/dL (7-17); Calcium 9.3 mg/dL (8.4-10.2); Carbon Dioxide 21 mmol/L (22-30); Chloride 104 mmol/L (98-107); Estimated Glomerular Filt Rate > 60; Glucose 107 mg/dL (65-110); Potassium 3.6 mmol/L (3.4-5.0); Sodium 135 mmol/L (137-145); Total Protein 7.7 g/dL (6.3-8.2)
[2024-12-10] MEDS: SODIUM CHLORIDE 0.9% IV 1,000 ML 999 ML IV CONT (15:54)
[2024-12-10 16:24] LABS: Beta HCG Quantitative 59975.00 mIU/ML
[2024-12-10 17:29] VITALS: BP 122/76; PULSE 78; RESP 16; TEMP 36.9; O2SAT 100
[2024-12-10 17:50] LABS: Add Urine Microscopic? YES; Appearance Urine Clear (Clear); Glucose Urine UA Negative (Negative); Leukocyte Esterase Ur Trace LEU/UL (Negative); Nitrate Urine Negative (Negative); Non Pathogenic Casts 0-2; Specific Grav Ur 1.015 (1.001-1.035)
[2024-12-10] MEDS: CEPHALEXIN 500 MG CAPSULE PO (18:48)
[2024-12-10 19:10] VITALS: BP 119/79; PULSE 73; RESP 18; O2SAT 99
[2024-12-10 19:17] VITALS: BP 119/79; PULSE 73; RESP 18; O2SAT 99
== END 2024-12-10 19:20 | disposition home or self-care (01) ==
PROVIDERS: Emergency Provider Registered Nurse; PCP Family Medicine
DX: O20.0 Threatened abortion (principal); O34.11 Maternal care for benign tumor of corpus uteri, first trimester; D25.9 Leiomyoma of uterus, unspecified; Z3A.09 9 weeks gestation of pregnancy
CPT/HCPCS: 36415; 76801; 76817; 80053; 81001; 84702; 85025; 85461; 85610; 85730; 86850; 86900; 86901; 96360; 99284; A9270; J7030

== ENCOUNTER 2025-01-26 22:40 | Emergency (ER) | payer MEDICAID, SELFPAY ==
--- NOTE | ~2025-01-26 | CT_ITS ---
EXAMINATION: CT brain wo con DATE: 01/27/2025 00:02 INDICATION: Left-sided headache. TECHNIQUE: Computed tomography (CT) of the head was performed without intravenous contrast. The mA was adjusted according to patient size. Iterative reconstruction technique was employed. The dose-length product was 605.33 mGy-cm. COMPARISON: None FINDINGS: There is no intracranial hemorrhage, acute infarction, or abnormal intracranial mass lesion. The ventricles are normal in size. The orbits are normal. There is mucosal thickening in the paranasal sinuses. The mastoid air cells are normal. IMPRESSION: 1. Normal brain. Reviewed, dictated and finalized at location E. IMPRESSION: 1. Normal brain.
[2025-01-26 22:48] VITALS: BP 142/95; PULSE 103; RESP 15; TEMP 36.8; O2SAT 95
[2025-01-26 22:49] VITALS: BP 142/95; PULSE 108; RESP 18; TEMP 36.8; O2SAT 98
[2025-01-26 23:47] VITALS: BP 134/89; PULSE 103; RESP 18; O2SAT 99
--- NOTE | 2025-01-26 23:57 | ED.HA ---
HPI - Headache General Chief Complaint: Headache Stated Complaint: PIERSON - 14 weeks Time Seen by Provider: 01/26/25 22:43 Source: patient Mode of arrival: ambulatory Limitations: no limitations History of Present Illness HPI Narrative: Patient is a 29-year-old female who presents the ED with report of headache. Patient reports having persistent intermittent headache since Friday. States it is often more on the left side of her head, but will radiate from the back to the front. Reports it is worse with certain movements. She did take Tylenol for the pain on Friday and had some improvement, but is nervous about taking Tylenol as she is currently 14 weeks gestation. Follow[address] with Dr. Silveira at [facility]. Has been seen for this and normal. Reports intermittent nausea and vomiting, but states she believes this is related. Reports some lightheadedness. Denies abd pain/vaginal bleeding. Related Data Allergies Allergy/AdvReac Type Severity Reaction Status Date / Time hydromorphone Allergy hives Verified 01/26/25 22:41 Review of Systems Review of Systems: All systems reviewed & are unremarkable except as noted in HPI. All systems reviewed & are unremarkable except as noted in HPI and below Exam Narrative: GENERAL: Well appearing, morbidly obese with BMI of 40.7, non-toxic, in no acute distress. HEAD: Normocephalic, atraumatic. EYES: PERRL/EOMI, conjunctiva clear RESPIRATORY: Airway patent, respirations nonlabored. Clear to auscultation bilaterally, no rales, rhonchi, wheezing. CARDIOVASCULAR: Borderline tachycardic with regular rhythm without murmurs, rubs, or gallops. ABDOMINAL: Soft, nontender, nondistended. Normoactive BS. MUSCULOSKELETAL: Moves all extremities. No gross deformities. SKIN: Warm, dry, normal color. NEURO: A&O X3. Speech clear. Cranial nerves II-XII grossly intact. Steady gait. No ataxic movements. No focal deficits. PSYCHIATRIC: Appropriate mood and affect. Normal interaction. Course Vital Signs Vital signs: Vital Signs Temperature 98.2 F 01/26/25 22:48 Pulse Rate 103 H 01/26/25 22:48 Respiratory Rate 15 01/26/25 22:48 Blood Pressure 142/95 H 01/26/25 22:48 Pulse Oximetry 95 09/17/25 22:48 Temperature 98.2 F 01/26/25 22:49 Pulse Rate 84 01/27/25 02:11 Respiratory Rate 14 01/27/25 02:11 Blood Pressure 131/84 01/27/25 02:11 Pulse Oximetry 100 01/27/25 02:11 Oxygen Delivery Room Air 01/26/25 22:49 MDM - Headache MDM Narrative Medical decision making narrative: Patient's headache was not sudden in onset or maximal in severity. There are no focal neurological deficits on exam. Subarachnoid hemorrhage is felt to be unlikely at this time. There is no history of fever and neck is supple on evaluation without meningeal signs. Meningitis is felt to be unlikely. No traumatic history or signs of trauma on evaluation. CT brain was obtained and w/o acute findings. No vision changes or ocular signs of acute glaucoma. Discussed medications with patient. She is OK receiving Tylenol in the ED. Also given fluids, benadryl, reglan. On reeval, patient feeling much better after migraine cocktail. Patient's headache is felt to be benign cephalgia, likely r/t hormonal changes, and reasonable for further outpatient management. Advised patient to follow with obgyn for further evaluation. Given reasons to return. She is in agreement with plan. D/C in stable condition. BP stable at time of d/c. Medical Records Attestation: I reviewed the patient's medical records. Imaging Data Attestation: I personally reviewed and interpreted this imaging study as follows: Radiologist's impression: STAT RAD CT brain: No acute intracranial hemorrhage. No midline shift or mass effect. The territory of hartman-white matter differentiation is maintained throughout. The ventricles and sulci are commensurate with age. Discharge Plan Discharge Clinical Impression: 14 weeks gestation of Headache Qualifiers: Headache type: unspecified Headache chronicity pattern: acute headache Intractability: not intractable Qualified Code(s): R51.9 - Headache, unspecified Patient Disposition: Home Condition: Stable Instructions: Antibiotic Form, Migraine Headache (ED), Acute Headache (ED) Additional Instructions: Your imaging of your brain did not show any abnormalities. Recommend plenty of fluids, plenty of rest. Recommend low light/ low stimulus environment, limiting screen time. You may use Tylenol as needed for pain. Utilize Zofran as needed for further nausea. Follow-up with your OBGYN for further evaluation if needed. Return to the ED if you experience worsening or severe pain, severe dizziness, vision changes, unable to keep down food or drink, or any other symptoms of concern. Patient Language: Latvian Prescriptions: New ondansetron 4 mg tablet,disintegrating 4 mg PO Q8H PRN (Reason: nausea and vomiting) Qty: 10 0RF No Action nitrofurantoin monohyd/m-cryst [Macrobid] 100 mg capsule 100 mg PO Q12H 5 Days Qty: 10 0RF Rx Instructions: must administer with a meal/food cephalexin 500 mg capsule 500 mg PO Q8H 7 Days Qty: 21 0RF Follow-up/Referrals: Wilian,Wily Stiles MD [Primary Care Provider] Time of Disposition: 01:54
[2025-01-27] MEDS: SODIUM CHLORIDE 0.9% IV 1,000 ML 999 ML IV CONT (00:01)
[2025-01-27] MEDS: METOCLOPRAMIDE HCL INJ 10 MG/2 ML VIAL IV PUSH (00:02)
[2025-01-27] MEDS: ACETAMINOPHEN 500 MG TABLET 1000 MG PO (00:02)
[2025-01-27 00:30] VITALS: PULSE 81; RESP 15; O2SAT 98
[2025-01-27 00:52] VITALS: PULSE 82; RESP 17; O2SAT 99
[2025-01-27 01:00] VITALS: PULSE 83; RESP 17; O2SAT 99
[2025-01-27 01:15] VITALS: PULSE 86; RESP 15; O2SAT 98
[2025-01-27 01:30] VITALS: PULSE 86; RESP 16; O2SAT 99
[2025-01-27 02:11] VITALS: BP 131/84; PULSE 84; RESP 14; O2SAT 100
== END 2025-01-27 02:13 | disposition home or self-care (01) ==
PROVIDERS: Emergency Provider Physician Assistant; PCP Family Medicine
DX: O26.892 Other specified pregnancy related conditions, second trimester (principal); R51.9 Headache, unspecified; Z3A.14 14 weeks gestation of pregnancy
CPT/HCPCS: 70450; 96361; 96374; 96375; 99284; A9270; J1200; J2765; J7030

== ENCOUNTER 2025-03-27 01:05 | Emergency (ER) | payer MEDICAID, SELFPAY ==
--- NOTE | 2025-03-27 03:01 | PC.NURSE ---
pt seen leaving ED. pt states I am going to make an appointment for tomorrow. pt ambulated out of ED in no acute distress
== END 2025-03-27 03:00 | disposition left against medical advice (07) ==
PROVIDERS: PCP Family Medicine
DX: R10.9 Unspecified abdominal pain (principal)
CPT/HCPCS: 99199